=== PATIENT | male | born 1970 | race Caucasian/White ===

== ENCOUNTER 2019-12-24 22:29 | Emergency (ER) | payer SELFPAY ==
[2019-12-24 22:39] VITALS: BP 130/76; PULSE 75; RESP 14; TEMP 36.4; O2SAT 97; BMI 21.4
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
[2019-12-24] MEDS: sodium chloride 0.9% 1,000 ML 999 ML IV (23:21)
[2019-12-24] MEDS: LORazepam 2 mg/mL INJ 1 mL 1 MG IVP (23:21)
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
[2019-12-24 23:27] LABS: Basophils # 0.1 10^3/uL (0.0-0.1); Basophils % 0.7 %; Eosinophils # 0.5 10^3/uL (0.0-0.8); Eosinophils % 4.1 %; Hematocrit 44.2 % (42.0-52.0); Hemoglobin 14.4 g/dL (11.7-16.6); Lymphocytes % 33.1 %; Mean Corpuscular HGB Conc 32.6 g/dL (30.0-36.0); Mean Corpuscular Hemoglobin 31.8 pg (28.0-34.0); Mean Corpuscular Volume 97.6 fL (80-94); Monocytes # 1.1 10^3/uL (0.2-0.9); Monocytes % 8.7 %; Neutrophils # 6.4 10^3/uL (1.8-7.7); Neutrophils % 52.5 %; Nucleated Red Blood Cells % 0 %; Platelet Count 454 10^3/cmm (130-400); Red Blood Count 4.53 10^6/uL (4.1-5.3); Red Cell Distribution Width 13.2 % (12.1-15.1); White Blood Count 12.1 10^3/uL (4.0-10.0)
[2019-12-24 23:33] LABS: Alcohol Level 83 mg/dL (0-10); Anion Gap 16.1 (5-19); Blood Urea Nitrogen 13 mg/dL (6-20); Calcium 9.4 mg/dL (8.5-10.5); Carbon Dioxide 28 mmol/L (22-29); Chloride 102 mmol/L (98-107); Creatinine Clr Calc Pharmacy 69.4452; Glomerular Filtration Rate 64.9 mL/min (90-130); Glucose 82 mg/dL (65-115); Osmolality Calculated 289 mOsm/kg (285-295); Potassium 4.1 mmol/L (3.5-5.1); Sodium 142 mmol/L (136-145)
[2019-12-24] MEDS: iohexol 300 mg/mL 100 mL Btl IV (23:39)
[2019-12-25 01:30] VITALS: BP 139/88; PULSE 77; RESP 18; O2SAT 97
== END 2019-12-25 01:33 | disposition home or self-care (01) ==
PROVIDERS: Emergency Provider Emergency Medicine
DX: S20.211A Contusion of right front wall of thorax, initial encounter (principal); V29.9XXA Motorcycle rider (driver) (passenger) injured in unspecified traffic accident, initial encounter
CPT/HCPCS: 12345; 70450; 71260; 74177; 80048; 80307; 85025; 96361; 96374; 96375; 99282; 99283; J2060; J7030; Q9967

== ENCOUNTER 2020-08-31 11:04 | Emergency (ER) | payer SELFPAY ==
[2020-08-31 11:17] VITALS: BP 122/83; PULSE 79; RESP 14; TEMP 36.6; O2SAT 99; BMI 21.4
--- NOTE | 2020-08-31 11:31 | CT_ITS ---
WS: [id number] CT ABDOMEN AND PELVIS WITH CONTRAST HISTORY: left inguinal hernia TECHNIQUE: Imaging performed of the abdomen and pelvis with IV contrast. Single phase imaging of the abdomen. Coronal and sagittal reformats are submitted. All CT scans at [facility] use at least one of these dose optimization techniques: automated exposure control; mA and/or kV adjustment per patient size (includes targeted exams where dose is matched to clinical indication); or iterativ e reconstruction. IV CONTRAST: Omnipaque 300; 95 mL IV. Oral contrast: No DLP: 782.89 mGy.cm COMPARISON: 12/24/2019 Lower thorax: Lung bases are clear. Heart is normal size. No hiatal hernia. Liver/biliary system: Normal size with no intrahepatic dilatation. Gallbladder: Normal. No gallstones or wall thickening. No pericholecystic fluid. Pancreas: Normal. Spleen: Normal. Adrenal glands: Normal. Right kidney: Normal. Left kidney: Normal. Aorta: Mild atherosclerosis. Lymphadenopathy: None. Free fluid: None. GI tract: Prior appendectomy. No GI tract obstruction. There is no herniation of bowel loops of the a bdominal wall along the inguinal canals. Abdominal wall: Unremarkable abdominal wall. No hernia. Pelvis: No free fluid or adenopathy. Urinary bladder is minimally distended. Mildly enlarged prostate gland. Bones: Bilateral L5 pars defects with L5 anterolisthesis by [address]/CT abdomen pelvis w con* [id number] IMPRESSION: 1. No acute abdominal or pelvic abnormalities. 2. No inguinal hernias. 3. Grade 1 anterolisthesis of L5 and bilateral pars defects. 4. Prior appendectomy.
--- NOTE | 2020-08-31 11:52 | ED_ITS ---
HPI - Male Genitourinary General: Chief complaint: Urogenital-Male Stated complaint: groin issues Time Seen by Provider: 08/31/20 11:25 History of Present Illness: HPI Narrative: The patient is a 50-year-old male who complains of 2 days of left groin pain. He says he feels like he has a hernia as he was lifting a heavy load with another individual and felt a severe sharp pain while he was lifting MD Complaint: hernia Onset (ago): day(s) (2) Severity: moderate Quality: sharp Associated symptoms: Reports no associated symptoms Review of Systems General: Reports: 10 or more systems reviewed and unremarkable except in HPI and below Const: Denies: fatigue Eyes: Denies: change in vision, blurry vision or eye redness ENMT: Denies: throat pain, swelling of lips/tongue, ear or mastoid pain or nasal congestion Card: Denies: chest pain, palpitations, irregular heart rhythm, edema, dyspnea on exertion or orthopnea Resp: Denies: dyspnea, productive cough or non-productive cough GI: Reports: other (Left groin pain); Denies: abdominal pain, diarrhea or GI cramping : Denies: flank pain, urinary frequency or urinary urgency Musc: Denies: neck pain, back pain, extremity pain, joint pain, joint redness, limited range of motion or muscle weakness Skin/Breast: Denies: rash, pruritus, erythema, skin pain or skin tenderness Neuro: Denies: headache(s), numbness in extremities, weakness in extremities, sensory changes, difficulty walking, dizziness, confusion or Slurred speech present Psych: Denies: anxiety or depression Endo: Denies: polyuria All/Imm: Denies: urticaria, throat swelling or tongue swelling Physical Exam Const: COMMON NORMALS: no acute distress, average body habitus, patient oriented x3, no limitations, healthy appearing, alert and well nourished GENERAL APPEARANCE: cooperative, comfortable, well kempt and well developed ORIENTATION/CONSCIOUSNESS: Yes awake, Yes oriented to person, Yes oriented to place and Yes oriented to time HENMT: COMMON NORMALS: normocephalic, external ears normal and Normal external nose present HEAD & SCALP: normal to inspection and normocephalic NOSE: Normal external nose present EXTERNAL EAR: Yes external ears normal MOUTH: Normal oral and palatal mucosa present THROAT: posterior oropharynx normal Eye: COMMON NORMALS: Equal, round and reactive pupils present and EOMs intact bilaterally GENERAL EYE: appearance normal, both eyes and all related structures PUPIL: Yes Equal, round and reactive pupils present Neck/C-Spine: COMMON NORMALS: full ROM, no lymphadenopathy, no meningeal signs and no JVD GENERAL: Yes normal visual inspection Lymph: LYMPHATIC: no lymphadenopathy noted Chest: COMMONS NORMALS: normal inspection of the chest and normal palpation of entire chest wall Resp: COMMON NORMALS: normal respiratory effort, No retractions, No use of accessory muscles, clear to auscultation bilaterally and percussion normal EFFORT & INSPECTION: Yes able to speak in complete sentences AUSCULTATION: clear to auscultation bilaterally PERCUSSION: percussion normal Cardio: COMMON NORMALS: no JVD, regular rate, regular rhythm, S1 normal heart sound present, S2 normal heart sound present and Peripheral pulses 2+ throughout RATE: regular rate RHYTHM: regular rhythm HEART SOUNDS: S1 normal heart sound present and S2 normal heart sound present PERIPHERAL PULSES: Peripheral pulses 2+ throughout GI: COMMON NORMALS: Normal to inspection, nondistended, normoactive bowel sounds present, Soft to palpation, non-tender and no masses INSPECTION: Yes normal to inspection PALPATION: Yes Soft to palpation and Yes Hernia present indirect inguinal Indirect inguinal hernia laterality: left : COMMON NORMALS: Yes no CVA tenderness BLADDER/KIDNEY EXAM: Yes no CVA tenderness Back/Pelvis: COMMON NORMALS: no CVA tenderness, thoracic and lumbar spine normal to inspection, no thoracic nor lumbar tenderness and thoraco-lumbar ROM normal Extremity: COMMON NORMALS: normal to inspection, full ROM, capillary refill normal, no joint enlargement and no pedal edema GENERAL: Yes normal exam except as noted Neuro: COMMON NORMALS: patient oriented x3, CN's II-XII intact bilaterally, moves all extremities, no focal motor deficits, no sensory deficits noted and gait normal SENSORIUM/ORIENTATION: Yes alert, Yes oriented to person, Yes amadou ented to place and Yes oriented to time MENINGEAL SIGNS: Yes no meningeal signs Psych: COMMON NORMALS: mental status grossly normal, Normal thought process present, cooperative, normal affect and speech normal APPEARANCE: Yes well kempt ATTITUDE: Yes calm SPEECH: Yes normal speech THOUGHT PROCESS: Normal thought process present Skin: COMMON NORMALS: no rashes or lesions noted GENERAL SKIN EXAM: no rashes or lesions noted Course Vital Signs: Vital signs: Vital Signs Temperature 97.8 F 08/31/20 11:17 Pulse Rate 85 08/31/20 13:26 Respiratory Rate 19 H 08/31/20 13:26 Blood Pressure 145/86 08/31/20 13:26 Pulse Oximetry 99 08/31/20 13:26 MDM - Male MDM Narrative: Medical decision making narrative: I felt an inguinal hernia on exam that likely reduced after laying flat and pain control. CT shows no inguinal hernia. White count is mildly elevated and likely reactive from that. He feels his pain has improved since returning from CT. He refuses to give urine. Testicles not tender at all. Stable for discharge. Follow-up with general surgeon in a few days and primary care around them. Do not lift heavy things as it will herniate again. Return to the ER with worsening symptoms as you may need surgery. Lab Data: Labs: Lab Results 08/31/20 08/31/20 08/31/20 Range/Units 12:10 12:10 12:10 WBC 14.1 H (4.0-10.0) 10^3/ uL RBC 4.23 (4.1-5.3) 10^6/u L Hgb 13.4 (11.7-16.6) g/dL Hct 40.8 L (42.0-52.0) % MCV 96.5 H (80-94) fL MCH 31.7 (28.0-34.0) pg MCHC 32.8 (30.0-36.0) g/dL RDW 13.0 (12.1-15.1) % Plt Count 414 H (130-400) 10^3/c mm MPV 8.9 (7.4-10.4) fL Neut % (Auto) 77.9 % Lymph % (Auto) 13.3 % [place] % (Auto) 6.9 % Eos % (Auto) 1.0 % Baso % (Auto) 0.6 % Neut # (Auto) 11.01 H (1.8-7.7) 10^3/u L Lymph # (Auto) 1.9 (0.8-4.8) 10^3/u L [place] # (Auto) 1.0 H (0.2-0.9) 10^3/u L Eos # (Auto) 0.1 (0.0-0.8) 10^3/u L Baso # (Auto) 0.1 (0.0-0.1) 10^3/u L Nucleated RBC % (a uto) 0 % Nucleated RBCs # 0.0 /100WBC Sodium 127 L (136-145) mmol/L Potassium 3.7 (3.5-5.1) mmol/L Chloride 96 L (98-107) mmol/L Carbon Dioxide 23 (22-29) mmol/L Anion Gap 11.7 (5-19) BUN 7 (6-20) mg/dL Creatinine 0.8 (0.7-1.2) mg/dL GFR Calculation 103.2 (90-130) mL/min Glucose 110 (65-115) mg/dL Calculated Osmolal ity 263 L (285-295) mOsm/k g Lactate 0.8 (0.5-2.2) mmol/L Calcium 8.1 L (8.5-10.5) mg/dL Total Bilirubin 0.3 (0.15-1.2) mg/dL AST 13 (0-40) U/L ALT 9 (0-41) U/L Alkaline Phosphata se 49 (40-130) IU/L Total Protein 6.1 L (6.6-8.7) g/dL Albumin 3.5 (3.5-5.2) g/dL Globulin 2.6 (1.3-4.6) g/dL Discharge Plan Discharge Patient Disposition: Home Clinical Impression: Inguinal hernia Condition: Stable Prescriptions: No Action No Known Home Medications RF: 0 Discharge Orders: Discharge ED (Routine); Ordered 08/31/20 Ordered By: Anthony Rubio Discharge Diet: Advance as tolerated Discharge Activity: Resume usual activity Patient Instructions: Inguinal Hernia (ED), Opioid Safety Activity Restrictions/Additional Instructions: You likely have an inguinal hernia that reduced before the CAT scan. Please follow-up with general surgeon. I have placed a case management referral to help you get an appointment. Return to the ER with worsening symptoms otherwise follow-up with your primary care physician in a few days. Coding Level of Care Code ED Commissioning Engineer for Shahnaz Fwd Exam Comprehensive
[2020-08-31] MEDS: iohexol 300 mg/mL 100 mL Btl IV (12:03)
[2020-08-31 12:29] LABS: Basophils # 0.1 10^3/uL (0.0-0.1); Basophils % 0.6 %; Eosinophils # 0.1 10^3/uL (0.0-0.8); Hematocrit 40.8 % (42.0-52.0); Hemoglobin 13.4 g/dL (11.7-16.6); Lymphocytes # 1.9 10^3/uL (0.8-4.8); Lymphocytes % 13.3 %; Mean Corpuscular HGB Conc 32.8 g/dL (30.0-36.0); Mean Corpuscular Hemoglobin 31.7 pg (28.0-34.0); Mean Corpuscular Volume 96.5 fL (80-94); Mean Platelet Volume 8.9 fL (7.4-10.4); Monocytes % 6.9 %; Neutrophils # 11.01 10^3/uL (1.8-7.7); Neutrophils % 77.9 %; Nucleated Red Blood Cells % 0 %; Platelet Count 414 10^3/cmm (130-400); Red Blood Count 4.23 10^6/uL (4.1-5.3); White Blood Count 14.1 10^3/uL (4.0-10.0)
[2020-08-31 12:52] LABS: Alanine Aminotransferase 9 U/L (0-41); Albumin Level 3.5 g/dL (3.5-5.2); Alkaline Phosphatase 49 IU/L (40-130); Anion Gap 11.7 (5-19); Aspartate Amino Transferase 13 U/L (0-40); Blood Urea Nitrogen 7 mg/dL (6-20); Calcium 8.1 mg/dL (8.5-10.5); Carbon Dioxide 23 mmol/L (22-29); Chloride 96 mmol/L (98-107); Globulin 2.6 g/dL (1.3-4.6); Glomerular Filtration Rate 103.2 mL/min (90-130); Glucose 110 mg/dL (65-115); Lactate (Lactic Acid level) 0.8 mmol/L (0.5-2.2); Osmolality Calculated 263 mOsm/kg (285-295); Potassium 3.7 mmol/L (3.5-5.1); Sodium 127 mmol/L (136-145); Total Bilirubin 0.3 mg/dL (0.15-1.2); Total Protein 6.1 g/dL (6.6-8.7)
[2020-08-31 13:26] VITALS: BP 145/86; PULSE 85; RESP 19; O2SAT 99
[2020-08-31 13:49] VITALS: BP 126/89; PULSE 71; RESP 18; O2SAT 100
--- NOTE | 2020-09-01 11:54 | DCPLANNER ---
mailroom manager had message to schedule a follow up appointment for patient with general surgery. mailroom manager emailed patients information to both Camila and Purvi at [facility] General Surgery. Patients information will be printed and reviewed. Clinic will call patient with appointment information. mailroom manager also had message to speak with patient about getting established with a primary care physician. Patient stated that he would like to go to [facility], where he was seen before. mailroom manager called [facility], was told that case sealer was unable to schedule a follow up appointment for patient at this time. mailroom manager tried to call patient back at [phone], he did not answer the phone,unable to leave a voicemail for patient at this time. Patient is supposed to call case sealer back.
--- NOTE | 2020-09-02 07:38 | DCPLANNER ---
Patient has a follow up appointment scheduled for Monday, September 07, 2020 at 2:[address] Espinoza at [facility] General Surgery. Clinic will call patient with appointment information.
--- NOTE | 2020-09-10 15:55 | DCPLANNER ---
Patient had a follow up appointment scheduled for 09.07.20 with general surgery - patient did attend appointment.
== END 2020-08-31 13:46 | disposition home or self-care (01) ==
PROVIDERS: Emergency Provider Family Medicine
DX: K40.90 Unilateral inguinal hernia, without obstruction or gangrene, not specified as recurrent (principal)
CPT/HCPCS: 36415; 74177; 80053; 83605; 85025; 99283; Q9967

== ENCOUNTER 2020-11-30 09:09 | Emergency (ER) | payer SELFPAY ==
[2020-11-30 09:14] VITALS: BP 143/95; PULSE 66; RESP 18; TEMP 36.6; O2SAT 100; BMI 21.1
[2020-11-30 09:26] VITALS: BP 143/95; PULSE 64; RESP 16; O2SAT 99
--- NOTE | 2020-11-30 09:34 | XR_ITS ---
WS: [id number] PORTABLE CHEST HISTORY: dyspnea/cough COMPARISON: 09/14/2018 Lungs are clear and well expanded. No pleural effusion or pneumothorax. Cardiac size: Normal. Mediastinum/Aorta: Normal mediastinum. No osseous abnormality seen. XR/XR chest 1V portable [id number] IMPRESSION: Unremarkable portable chest.
--- NOTE | 2020-11-30 09:34 | ECG_ITS ---
[facility] Test Date: 2020-11-30 Pat Name: Alexandr Marley Department: Room: Gender: Male Facilities Maintenance Supervisor: : 1970 Requested By: Ja Meyer Order Number: [id number] Rick MD: Shelton Norman M.D. Measurements Intervals [place] Rate: 60 P: 62 UT: 142 QRS: 97 QRSD: 97 T: 72 QT: 372 QTc: 374 Interpretive Statements SINUS RHYTHM BORDERLINE RIGHT AXIS DEVIATION [QRS AXIS > 90] Compared to ECG 05/03/2017 08:38:36 Sinus arrhythmia no longer present Electronically Signed On 11-30-2020 12:31:18 CDT by Shelton Norman M.D. [id number]
--- NOTE | 2020-11-30 09:40 | PC.NURSE ---
XR done at bedside
[2020-11-30 09:42] LABS: Basophils # 0.1 10^3/uL (0.0-0.1); Basophils % 0.4 %; Eosinophils # 0.2 10^3/uL (0.0-0.8); Eosinophils % 1.6 %; Hematocrit 43.2 % (42.0-52.0); Hemoglobin 14.7 g/dL (11.7-16.6); Lymphocytes # 2.8 10^3/uL (0.8-4.8); Lymphocytes % 20.3 %; Mean Corpuscular Hemoglobin 32.5 pg (28.0-34.0); Mean Corpuscular Volume 95.6 fL (80-94); Mean Platelet Volume 9.2 fL (7.4-10.4); Monocytes # 1.4 10^3/uL (0.2-0.9); Monocytes % 9.8 %; Neutrophils # 9.23 10^3/uL (1.8-7.7); Neutrophils % 67.4 %; Nucleated Red Blood Cells % 0 %; Platelet Count 423 10^3/cmm (130-400); Red Blood Count 4.52 10^6/uL (4.1-5.3); Red Cell Distribution Width 13.4 % (12.1-15.1); White Blood Count 13.7 10^3/uL (4.0-10.0)
[2020-11-30 09:52] LABS: Blood Urea Nitrogen 10 mg/dL (6-20); Calcium 8.6 mg/dL (8.5-10.5); Carbon Dioxide 24 mmol/L (22-29); Chloride 103 mmol/L (98-107); Glomerular Filtration Rate 120.4 mL/min (90-130); Glucose 85 mg/dL (65-115); Osmolality Calculated 288 mOsm/kg (285-295); Sodium 140 mmol/L (136-145)
--- NOTE | 2020-11-30 10:05 | W.ED.URI ---
HPI - URI/Sore Throat General: Chief Complaint: Upper Respiratory Infection Stated Complaint: Cough/Congestion/CP Time Seen by Provider: 11/30/20 09:23 History of Present Illness: HPI Narrative: 50-year-old male comes complaint cough and congestion. His moderately productive sputum. He is a former smoker states he has emphysema but is not currently being treated with anything. He does not have a primary care doctor. MD elicited complaint: cough Pertinent past history: COPD Onset (ago): day(s) Consistency: constant Severity: moderate Description of mucous: yellow Able to tolerate fluids by mouth: Yes Exacerbating factors: exertion and deep breaths Relieving factors: rest Context: sick contacts Associated symptoms: Reports congestion, cough and nasal congestion; Deny abdominal pain, change in voice, chills, chest pain, diarrhea, epistaxis, ear or mastoid pain, fever(s), headache(s), myalgias, nausea, rash, rhinorrhea, short of breath, sinus pain, stiffness, sore throat or vomiting Treatments prior to arrival: none Review of Systems Const: Denies: fever(s) or chills ENMT: Reports: nasal congestion; Denies: ear or mastoid pain, epistaxis or sinus pain Card: Denies: chest pain Resp: Denies: dyspnea, productive cough or non-productive cough GI: Denies: abdominal pain, nausea, vomiting or diarrhea : Denies: flank pain, dysuria, urinary frequency or urinary urgency Skin/Breast: Denies: rash or pruritus Neuro: Denies: headache(s) PFSH ED PFSH: Family History Mother Cancer Social History Smoking and tobacco status: current every day smoker Quit status (tobacco): not considering quitting Second hand smoke exposure: No Alcohol intake: never Lives independently: Yes Physical Exam Const: COMMON NORMALS: no acute distress GENERAL APPEARANCE: cooperative and comfortable ORIENTATION/CONSCIOUSNESS: Yes awake, Yes oriented to person, Yes oriented to place and Yes oriented to time HENMT: COMMON NORMALS: normocephalic, atraumatic, hearing grossly normal bilaterally and external ears normal HEAD & SCALP: normocephalic and atraumatic EXTERNAL EAR: Yes external ears normal Neck/C-Spine: COMMON NORMALS: no JVD Resp: AUSCULTATION: rhonchi and wheezes Cardio: COMMON NORMALS: no JVD, regular rate, regular rhythm and No murmurs present (Cardio) RATE: regular rate RHYTHM: regular rhythm GI: COMMON NORMALS: Soft to palpation and No hepatosplenomegaly present AUSCULTATION: Yes normoactive bowel sounds PALPATION: Yes Soft to palpation, No Tenderness to palpation present (GI), No Guarding due to palpation present (GI) and Yes No hepatosplenomegaly present Extremity: COMMON NORMALS: normal to inspection, capillary refill normal, no clubbing, cyanosis or edema, no calf tenderness and no pedal edema Neuro: SENSORIUM/ORIENTATION: Yes oriented to person, Yes oriented to place and Yes oriented to time Skin: COMMON NORMALS: no rashes or lesions noted GENERAL SKIN EXAM: no rashes or lesions noted Course Vital Signs: Vital signs: Vital Signs Temperature 97.8 F 11/30/20 09:14 Pulse Rate 70 11/30/20 10:36 Respiratory Rate 20 H 11/30/20 10:36 Blood Pressure 120/79 11/30/20 10:36 Pulse Oximetry 98 11/30/20 10:36 MDM - URI/Sore Throat MDM Narrative: Medical decision making narrative: Start on bronchitis steroid taper albuterol as needed follow-up with primary care Lab Data: Labs: Lab Results 11/30/20 11/30/20 Range/Units 09:25 09:25 WBC 13.7 H (4.0-10.0) 10^3/ uL RBC 4.52 (4.1-5.3) 10^6/u L Hgb 14.7 (11.7-16.6) g/dL Hct 43.2 (42.0-52.0) % MCV 95.6 H (80-94) fL MCH 32.5 (28.0-34.0) pg MCHC 34.0 (30.0-36.0) g/dL RDW 13.4 (12.1-15.1) % Plt Count 423 H (130-400) 10^3/c mm MPV 9.2 (7.4-10.4) fL Neut % (Auto) 67.4 % Lymph % (Auto) 20.3 % [place] % (Auto) 9.8 % Eos % (Auto) 1.6 % Baso % (Auto) 0.4 % Neut # (Auto) 9.23 H (1.8-7.7) 10^3/u L Lymph # (Auto) 2.8 (0.8-4.8) 10^3/u L [place] # (Auto) 1.4 H (0.2-0.9) 10^3/u L Eos # (Auto) 0.2 (0.0-0.8) 10^3/u L Baso # (Auto) 0.1 (0.0-0.1) 10^3/u L Nucleated RBC % (a uto) 0 % Nucleated RBCs # 0.0 /100WBC Sodium 140 (136-145) mmol/L Potassium 3.7 (3.5-5.1) mmol/L Chloride 103 (98-107) mmol/L Carbon Dioxide 24 (22-29) mmol/L Anion Gap 16.7 (5-19) BUN 10 (6-20) mg/dL Creatinine 0.7 (0.7-1.2) mg/dL GFR Calculation 120.4 (90-130) mL/min Glucose 85 (65-115) mg/dL Calculated Osmolal ity 288 (285-295) mOsm/k g Calcium 8.6 (8.5-10.5) mg/dL Discharge Plan Discharge Patient Disposition: Home Clinical Impression: Acute exacerbation of chronic obstructive pulmonary disease (COPD) Condition: Stable Prescriptions: New doxycycline hyclate 100 mg capsule 100 mg PO BID 10 Days Qty: 20 RF: 0 Medrol (Levon) 4 mg tablets,dose pack See Rx Instructions .ROUTE .COMPLEX Qty: 21 RF: 0 albuterol sulfate 90 mcg/actuation HFA aerosol inhaler 2 inh INHALATION Q4H PRN (Reason: shortness of breath or wheezing) Qty: 18 RF: 0 Discharge Orders: Discharge ED (Routine); Ordered 11/30/20 Ordered By: Ja Munoz Discharge Diet: Usual diet Discharge Activity: Increase activity as tolerated Patient Instructions: Opioid Safety Coding Level of Care Code ED Automotive Fleet Supervisor for Khrisg Fwd Exam Comprehensive
[2020-11-30 10:07] VITALS: BP 131/73; PULSE 66; RESP 22; O2SAT 100
[2020-11-30] MEDS: ondansetron 2 mg/ML SDV 2 mL 4 MG IVP (10:26)
[2020-11-30 10:30] VITALS: BP 120/79; PULSE 70; RESP 20; O2SAT 98
[2020-11-30 10:33] LABS: Anion Gap 16.7 (5-19); Potassium 3.7 mmol/L (3.5-5.1)
--- NOTE | 2020-11-30 10:35 | PC.NURSE ---
Discharge instructions given to patient and , zofran IVP given, IV removed, no further questions. Patient ambulated to exit accompanied by this nurse and his .
[2020-11-30 10:36] VITALS: BP 120/79; PULSE 70; RESP 20; O2SAT 98
--- NOTE | 2020-12-03 14:03 | DCPLANNER ---
manager of planning had message to speak with patient about getting established with a primary care physician. manager of planning called [phone], unable to speak with patient at this time, a voicemail was left for patient to return case resource manager phone call.
== END 2020-11-30 10:30 | disposition home or self-care (01) ==
PROVIDERS: Emergency Provider Family Medicine
DX: J44.1 Chronic obstructive pulmonary disease with (acute) exacerbation (principal); F17.210 Nicotine dependence, cigarettes, uncomplicated
CPT/HCPCS: 71045; 80048; 85025; 93005; 96374; 99284; J2405

== ENCOUNTER 2021-06-24 07:40 | Emergency (ER) | payer SELFPAY ==
--- NOTE | 2021-06-24 07:47 | W.ED.GENADLT ---
HPI - General Adult General: Chief complaint: Extremity Injury, Upper Stated complaint: L NECK & HEAD PAIN FROM INJURY Time Seen by Provider: 06/24/21 07:46 History of Present Illness: HPI narrative: 50-year-old male presents emergency room with complaint of neck pain which he describes as left side pain.States that 4 days ago while he was at work some utensils pots or pans or some such fell off of a shelf and hit him on the left shoulder and left side of the neck. He states he has bruising across his entire left side. He states that all of this affects him on the left because of his COPD. Patient has sporadic movements. He is also mildly tachycardic. Denies any loss of consciousness complaining of neck pain as well as bruising. Onset (ago): day(s) (4) Location: head, neck, chest, left and upper extremity Severity: mild Quality: aching Pain Consistency: constant Relieving factors: none Exacerbating factors: none Associated symptoms: Reports headache(s); Deny chest pain, cough, diaphoresis, decreased appetite, dyspnea, fevers/chills, malaise, nausea, rash, palpitations, seizures, short of breath, syncope, vomiting or weakness Treatments prior to arrival: none Review of Systems Const: Denies: malaise or diaphoresis ENMT: Denies: throat pain, ear or mastoid pain, nasal discharge or nasal congestion Card: Denies: chest pain, palpitations or syncope Resp: Denies: dyspnea GI: Denies: nausea or vomiting : Denies: flank pain, dysuria, urinary frequency or urinary urgency Skin/Breast: Denies: rash Neuro: Reports: headache(s) [facility] ED PFSH: Medical History (Updated 06/24/21 @ 08:10 by Ja Munoz DO) COPD (chronic obstructive pulmonary disease) Surgical History (Updated 06/24/21 @ 08:05 by Ja Munoz DO) History of appendectomy Family History Mother Cancer Social History Smoking and tobacco status: current every day smoker Quit status (tobacco): not considering quitting Second hand smoke exposure: No Alcohol intake: never Lives independently: Yes Physical Exam Const: GENERAL APPEARANCE: cooperative and comfortable ORIENTATION/CONSCIOUSNESS: Yes awake, Yes oriented to person, Yes oriented to place and Yes oriented to time HENMT: COMMON NORMALS: normocephalic, atraumatic and hearing grossly normal bilaterally HEAD & SCALP: normocephalic and atraumatic Neck/C-Spine: OTHER: Attempt to clear C-spine at the bedside patient reports pain imaging ordered. Resp: COMMON NORMALS: normal respiratory effort, No retractions, No use of accessory muscles and clear to auscultation bilaterally AUSCULTATION: clear to auscultation bilaterally Cardio: COMMON NORMALS: regular rate, regular rhythm and No murmurs present (Cardio) RATE: regular rate RHYTHM: regular rhythm GI: COMMON NORMALS: Soft to palpation and No hepatosplenomegaly present AUSCULTATION: Yes normoactive bowel sounds PALPATION: Yes Soft to palpation, No Tenderness to palpation present (GI), No Guarding due to palpation present (GI) and Yes No hepatosplenomegaly present Extremity: COMMON NORMALS: normal to inspection, capillary refill normal, no clubbing, cyanosis or edema, no calf tenderness and no pedal edema Neuro: SENSORIUM/ORIENTATION: Yes oriented to person, Yes oriented to place and Yes oriented to time OTHER: Cranial nerves II to XII grossly intact. No focal neurologic deficits noted. No pronator drift. Deep tendon reflex and upper extremity on the left are normal at brachial radialis biceps and triceps. Sensation normal. Java Mobile Developer strength equal. Skin: COMMON NORMALS: no rashes or lesions noted GENERAL SKIN EXAM: no rashes or lesions noted Course Vital Signs: Vital signs: Vital Signs Pulse Rate 101 H 06/24/21 07:53 Respiratory Rate 18 06/24/21 07:53 Blood Pressure 136/89 06/24/21 07:53 Pulse Oximetry 98 06/24/21 07:53 MDM - General Adult MDM Narrative: Medical decision making narrative: On exam patient appears to be under under the influence. Suspect he is under the influence of methamphetamine he is mildly tachycardic has rather chaotic leg movements he actually destroyed 2 masks just grabbing at his face and then did not seem to even notice a one-point of the mask was covering his eyes with the upper band of the mask after he ripped the lower band off. His exam is unremarkable C-spine films done no acute changes does have chronic changes and some disc disease. Radiology report reviewed. Discharge Plan Discharge Patient Disposition: Home Clinical Impression: Acute neck pain Condition: Stable Prescriptions: New diclofenac sodium 75 mg tablet,delayed release (DR/EC) 75 mg PO Q12H PRN (Reason: pain) Qty: 20 RF: 0 No Action Medrol (Levon) 4 mg tablets,dose pack See Rx Instructions .ROUTE .COMPLEX Qty: 21 RF: 0 albuterol sulfate 90 mcg/actuation HFA aerosol inhaler 2 inh INHALATION Q4H PRN (Reason: shortness of breath or wheezing) Qty: 18 RF: 0 Discharge Orders: Discharge ED (Routine); Ordered 06/24/21 Ordered By: Ja Munoz Patient Instructions: Opioid Safety Coding Level of Care Code ED Asbestos Siding Installer for Chg Fwd Exam Detailed
[2021-06-24 07:53] VITALS: BP 136/89; PULSE 101; RESP 18; O2SAT 98; BMI 21.4
--- NOTE | 2021-06-24 08:04 | XR_ITS ---
WS: [id number] Cervical spine, 5 views, 06/24/2021 Clinical Data: Pain Comparison: Cervical spine, 09/18/2014. Findings: No compression fractures are seen. There are degenerative disks at C4-C5, C5-C6 and C6-C7 w ith osteophyte formation. There is loss of normal lordotic curvature. There is no prevertebral soft t issue swelling. The odontoid is unremarkable. The soft tissues of the neck and the lung apices are no rmal. XR/XR cervical spine 3V* [id number] Impression: 1. Degenerative disc narrowing at C4-C5, C5-C6 and C6-7 with osteophyte formati on. 2. Loss of normal lordotic curvature.
[2021-06-24] MEDS: ketorolac 30 mg/mL INJ 60 MG IM (08:47)
[2021-06-24 08:53] VITALS: BP 136/89; PULSE 101; RESP 18; O2SAT 98
== END 2021-06-24 08:54 | disposition home or self-care (01) ==
PROVIDERS: Emergency Provider Family Medicine
DX: M54.2 Cervicalgia (principal); J44.9 Chronic obstructive pulmonary disease, unspecified; F17.210 Nicotine dependence, cigarettes, uncomplicated
CPT/HCPCS: 72040; 96372; 99283; J1885

== ENCOUNTER 2021-07-14 09:49 | Emergency (ER) | payer SELFPAY ==
[2021-07-14 09:59] VITALS: BP 130/74; PULSE 73; RESP 22; TEMP 36.7; O2SAT 97; BMI 21.4
--- NOTE | 2021-07-14 10:13 | W.ED.COVID ---
HPI - COVID General: Chief Complaint: Headache Stated Complaint: Body Aches, COVID exposure Time Seen by Provider: 07/14/21 10:09 Triage information: No fever, cough or shortness of breath. No known COVID + exposure last 14 days History of Present Illness: HPI Narrative: Patient states he thinks he has COVID. Had close exposure positive COVID he said in the last 3 weeks. Said he has a headache he has body aches, also nauseated, increased shortness of breath. He is also coughing. Said taste and smell is not as good as it was. Also requesting note for work MD complaint: reported COVID exposure and has COVID symptoms COVID 19 common symptoms: positive non-productive cough, dyspnea, body aches, headache(s), loss of sense of smell and/or taste, nasal congestion and diarrhea COVID 19 other sytmptoms: negative chest pain Onset (ago): day(s) (To) Severity: mild Pertinent comorbid conditions: COPD/respiratory disease Treatment prior to arrival: none COVID Results: No Data to Display Review of Systems Const: Reports: body aches Eyes: Denies: change in vision or blurry vision ENMT: Reports: nasal congestion Card: Denies: chest pain or dyspnea on exertion Resp: Reports: dyspnea and non-productive cough GI: Reports: diarrhea : Denies: difficulty urinating Musc: Denies: extremity pain Skin/Breast: Denies: rash Neuro: Reports: headache(s) Psych: Denies: anxiety or depression Parker/Lymph: Denies: easy bruising PFS ED PFSH: Medical History (Updated 07/14/21 @ 10:12 by MISTY Milton) COPD (chronic obstructive pulmonary disease) Surgical History (Updated 06/24/21 @ 08:05 by Ja Munoz DO) History of appendectomy Family History Mother Cancer Social History Smoking and tobacco status: current every day smoker Quit status (tobacco): not considering quitting Second hand smoke exposure: No Alcohol intake: never Lives independently: Yes Physical Exam Narrative: EXAM NARRATIVE: Patient does not appear in any acute distress. Patient does not appear short of breath. Const: COMMON NORMALS: no acute distress, average body habitus and patient oriented x3 HENMT: COMMON NORMALS: normocephalic HEAD & SCALP: normal to inspection and normocephalic FACE & SINUS: normal facial exam Eye: COMMON NORMALS: conjunctivae normal GENERAL EYE: appearance normal, both eyes and all related structures CONJUNCTIVA: Yes conjunctivae normal Neck/C-Spine: COMMON NORMALS: no JVD Chest: COMMONS NORMALS: normal inspection of the chest Resp: COMMON NORMALS: normal respiratory effort and No use of accessory muscles EFFORT & INSPECTION: Yes able to speak in complete sentences Cardio: COMMON NORMALS: no JVD and regular rate RATE: regular rate GI: INSPECTION: Yes normal to inspection Extremity: COMMON NORMALS: normal to inspection and full ROM Neuro: COMMON NORMALS: patient oriented x3 Course Vital Signs: Vital signs: Vital Signs Temperature 98.1 F 07/14/21 09:59 Pulse Rate 73 07/14/21 09:59 Respiratory Rate 22 H 07/14/21 09:59 Blood Pressure 130/74 07/14/21 09:59 Pulse Oximetry 97 07/14/21 09:59 MDM - COVID MDM Narrative: Medical decision making narrative: Brief history and physical exam was performed as part of the triage process. Due to current ED wait time patient will be placed in waiting room until a room becomes available. Explained to patient he/she will be seen in order of severity. Patient is currently safe to wait in the waiting room until we can get them placed. Patient informed that if condition worsens at any time to please let the dental front office assistant know. Mr. Duke is here because he thinks he might have COVID. Patient is in no acute distress. Patient is requesting a note for work. Says he just feels achy and then feel like he can work for next few days. Patient has had positive COVID exposure in the last 3 weeks. Patient has shortness of breath consistent with his emphysema but he says is no different than previous. His out of an inhaler. Vital signs are stable. Encouraged patient to call clinic for possible MCA infusion once results are back and they are positive but it is hard to determine when his symptoms actually started. Patient left before discharge requesting multiple times for work note. Handwritten work note given for patient patient left lymphedema COVID Results: No Data to Display Discharge Plan Discharge Patient Disposition: Home Clinical Impression: Close exposure to COVID-19 virus Condition: Stable Prescriptions: New Decadron 6 mg tablet 6 mg PO DAILY Qty: 7 RF: 0 ProAir HFA 90 mcg/actuation HFA aerosol inhaler 2 inh inhalation Q4H PRN (Reason: shortness of breath or wheezing) Qty: 6.7 RF: 0 No Action Medrol (Levon) 4 mg tablets,dose pack See Rx Instructions .ROUTE .COMPLEX Qty: 21 RF: 0 albuterol sulfate 90 mcg/actuation HFA aerosol inhaler 2 inh INHALATION Q4H PRN (Reason: shortness of breath or wheezing) Qty: 18 RF: 0 diclofenac sodium 75 mg tablet,delayed release (DR/EC) 75 mg PO Q12H PRN (Reason: pain) Qty: 20 RF: 0 Discharge Orders: Discharge ED (Routine); Ordered 07/14/21 Ordered By: Enoc Olivas Discharge Diet: Usual diet Discharge Activity: Increase activity as tolerated Patient Instructions: COVID-19 (Coronavirus Disease 2019) (ED) Activity Restrictions/Additional Instructions: Follow-up with medical provider as directed. Take medications as prescribed. Return to the ER or your medical provider if condition worsens. Please read and understand discharge instructions. If any questions ask please. Stand Alone Forms: Work/School Release Coding Level of Care Code ED Human Development Professor for Shahnaz Fwd Exam Comprehensive
== END 2021-07-14 14:10 | disposition home or self-care (01) ==
PROVIDERS: Emergency Provider Nurse Practitioner Family
DX: R51.9 Headache, unspecified (principal); Z20.822 Contact with and (suspected) exposure to COVID-19; J43.9 Emphysema, unspecified; F17.200 Nicotine dependence, unspecified, uncomplicated
CPT/HCPCS: 99281

== ENCOUNTER → 2021-07-19 11:07 | Outpatient (BNVA) | payer OTHER, SELFPAY | PROVIDERS: Visit Provider Nurse Practitioner Family | DX: Z20.822 Contact with and (suspected) exposure to COVID-19 (principal) | CPT/HCPCS: 87635 ==

== ENCOUNTER 2021-08-20 10:05 | Emergency (ER) | payer SELFPAY ==
[2021-08-20 10:14] VITALS: BP 125/75; PULSE 84; RESP 22; TEMP 36.6; O2SAT 96; BMI 21.1
--- NOTE | 2021-08-20 10:41 | XR_ITS ---
WS: [id number] Exam: XR chest 1V portable [id number] Date/Time of Exam: 08/20/2021 10:48 AM Reason For Exam: dyspnea/cough Comparison 11/30/2020. The lungs are fully expanded and clear. No pleural effusions. Normal cardiomediastinal silhouette. Se veral emphysematous blebs seen in the apex the right lung. Regional bony elements are intact. XR/XR chest 1V portable [id number] IMPRESSION: 1. No acute cardiopulmonary finding. No change.
--- NOTE | 2021-08-20 10:41 | ECG_ITS ---
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 Measurements Intervals Dozier Rate: 61 P: 66 UT: 151 QRS: 91 QRSD: 106 T: 75 QT: 376 QTc: 380 Interpretive Statements SINUS RHYTHM INDETERMINATE AXIS INCOMPLETE RIGHT BUNDLE BRANCH BLOCK [90+ ms QRS DURATION, TERMINAL R IN V1/V2, 40+ ms S IN I/aVL/V4/V5/V6] Compared to ECG 11/30/2020 09:28:34 Indeterminate axis now present Incomplete right bundle-branch block now present Electronically Signed On 08-20-2021 12:27:51 SONOSCOPE OPERATOR by Osito De Oliveira M.D. [id number]
[2021-08-20 10:47] VITALS: BP 126/90; PULSE 62; RESP 16; O2SAT 100
[2021-08-20 10:48] VITALS: O2SAT 100
[2021-08-20] MEDS: sodium chloride 0.9% 1,000 ML 999 ML IV (11:03)
[2021-08-20 11:05] VITALS: BP 127/76; PULSE 68; O2SAT 100
[2021-08-20 11:08] LABS: Basophils # 0.1 10^3/uL (0.0-0.1); Eosinophils # 0.4 10^3/uL (0.0-0.8); Eosinophils % 5.6 %; Hemoglobin 15.8 g/dL (11.7-16.6); Lymphocytes # 1.8 10^3/uL (0.8-4.8); Lymphocytes % 25.8 %; Mean Corpuscular HGB Conc 32.2 g/dL (30.0-36.0); Mean Corpuscular Hemoglobin 31.5 pg (28.0-34.0); Mean Corpuscular Volume 97.8 fl (80-94); Mean Platelet Volume 9.7 fL (7.4-10.4); Monocytes # 0.6 10^3/uL (0.2-0.9); Monocytes % 8.9 %; Neutrophils # 4.06 10^3/uL (1.8-7.7); Neutrophils % 58.6 %; Nucleated Red Blood Cells % 0 %; Platelet Count 382 10^3/cmm (130-400); Red Blood Count 5.01 10^6/uL (4.1-5.3); Red Cell Distribution Width 13.7 % (12.1-15.1); White Blood Count 6.9 10^3/uL (4.0-10.0)
[2021-08-20 11:34] VITALS: BP 127/76; PULSE 55; RESP 16; O2SAT 98
[2021-08-20 11:59] LABS: Alanine Aminotransferase 11 U/L (0-41); Albumin Level 4.1 g/dL (3.5-5.2); Alkaline Phosphatase 42 IU/L (40-130); Anion Gap 9.9 (5-19); Aspartate Amino Transferase 12 U/L (0-40); Blood Urea Nitrogen 9 mg/dL (6-20); Calcium 9.1 mg/dL (8.5-10.5); Carbon Dioxide 27 mmol/L (22-29); Chloride 106 mmol/L (98-107); Globulin 2.8 g/dL (1.3-4.6); Glomerular Filtration Rate 102.7 mL/min (90-130); Glucose 104 mg/dL (65-115); Osmolality Calculated 287 mOsm/kg (285-295); Potassium 3.9 mmol/L (3.5-5.1); Sodium 139 mmol/L (136-145); Total Bilirubin 0.4 mg/dL (0.15-1.2); Total Protein 6.9 g/dL (6.6-8.7)
--- NOTE | 2021-08-20 12:01 | W.ED.COVID ---
HPI - COVID General: Chief Complaint: COVID symptoms Stated Complaint: Cant breath, has infazima , hurting bad Time Seen by Provider: 08/20/21 10:25 Triage information: Has fever, cough or shortness of breath. Exposure to COVID + person last 14 days History of Present Illness: 51-year-old male who presents to the emergency room with complaint of cough and congestion shortness of breath. He does not have any chest pain he has a lot of sinus congestion. He tested positive for Covid on July 20 most of symptoms is resolved but he still has a persistent cough some myalgias and fatigue. MD complaint: known COVID positive Prior testing date: 07/20/21 COVID 19 common symptoms: positive cough, non-productive cough, dyspnea and body aches; negative nasal congestion, nausea, vomiting or diarrhea COVID 19 other sytmptoms: negative chest pain or requiring oxygen Onset (ago): week(s) Severity: mild Treatment prior to arrival: none COVID Results: SARS-CoV-2 RNA (RT-PCR) Detected (NOT DETECTED) A 07/19/21 11:07 07/19/21 Review of Systems Const: Reports: body aches ENMT: Denies: nasal congestion Card: Denies: chest pain Resp: Reports: dyspnea and non-productive cough GI: Denies: nausea, vomiting or diarrhea : Denies: flank pain, dysuria, urinary frequency or urinary urgency Skin/Breast: Denies: rash or pruritus [facility] ED PFSH: Medical History COPD (chronic obstructive pulmonary disease) Surgical History History of appendectomy Family History Mother Cancer Social History Smoking and tobacco status: current every day smoker Quit status (tobacco): not considering quitting Second hand smoke exposure: No Alcohol intake: never Lives independently: Yes Physical Exam Const: GENERAL APPEARANCE: cooperative and comfortable ORIENTATION/CONSCIOUSNESS: Yes awake, Yes oriented to person, Yes oriented to place and Yes oriented to time HENMT: COMMON NORMALS: normocephalic, atraumatic and hearing grossly normal bilaterally HEAD & SCALP: normocephalic and atraumatic Neck/C-Spine: COMMON NORMALS: no JVD Resp: AUSCULTATION: rhonchi and wheezes Cardio: COMMON NORMALS: no JVD, regular rate, regular rhythm and No murmurs present (Cardio) RATE: regular rate RHYTHM: regular rhythm GI: COMMON NORMALS: Soft to palpation and No hepatosplenomegaly present AUSCULTATION: Yes normoactive bowel sounds PALPATION: Yes Soft to palpation, No Tenderness to palpation present (GI), No Guarding due to palpation present (GI) and Yes No hepatosplenomegaly present Extremity: COMMON NORMALS: normal to inspection, capillary refill normal, no clubbing, cyanosis or edema, no calf tenderness and no pedal edema Neuro: SENSORIUM/ORIENTATION: Yes oriented to person, Yes oriented to place and Yes oriented to time Skin: COMMON NORMALS: no rashes or lesions noted GENERAL SKIN EXAM: no rashes or lesions noted Course Vital Signs: Vital signs: Vital Signs Temperature 97.8 F 08/20/21 10:14 Pulse Rate 64 08/20/21 12:44 Respiratory Rate 16 08/20/21 11:34 Blood Pressure 139/91 08/20/21 12:44 Pulse Oximetry 100 08/20/21 12:44 MDM - COVID Medical Decision Making COVID was positive nearly a month ago he is not having any chest pain. He is not tachycardic his sats are good. Reviewed labs and findings with him we will go ahead and discharge home on steroids doxycycline albuterol as needed Medical Records I reviewed the patient's medical records. Lab Data I reviewed the patient's lab results. : 08/20/21 10:58 08/20/21 11:33 Radiology Impressions Chest X-Ray 08/20/21 10:41 IMPRESSION: 1. No acute cardiopulmonary finding. No change. Laboratory Results WBC 6.9 10^3/uL (4.0-10.0) 08/20/21 10:58 RBC 5.01 10^6/uL (4.1-5.3) 08/20/21 10:58 Hgb 15.8 g/dL (11.7-16.6) 08/20/21 10:58 Hct 49.0 % (42.0-52.0) 08/20/21 10:58 MCV 97.8 fl (80-94) H 08/20/21 10:58 MCH 31.5 pg (28.0-34.0) 08/20/21 10:58 MCHC 32.2 g/dL (30.0-36.0) 08/20/21 10:58 RDW 13.7 % (12.1-15.1) 08/20/21 10:58 Plt Count 382 10^3/cmm (130-400) 08/20/21 10:58 MPV 9.7 fL (7.4-10.4) 08/20/21 10:58 Neut % (Auto) 58.6 % 08/20/21 10:58 Lymph % (Auto) 25.8 % 08/20/21 10:58 [place] % (Auto) 8.9 % 08/20/21 10:58 Eos % (Auto) 5.6 % 08/20/21 10:58 Baso % (Auto) 1.0 % 08/20/21 10:58 Neut # (Auto) 4.06 10^3/uL (1.8-7.7) 08/20/21 10:58 Lymph # (Auto) 1.8 10^3/uL (0.8-4.8) 08/20/21 10:58 [place] # (Auto) 0.6 10^3/uL (0.2-0.9) 08/20/21 10:58 Eos # (Auto) 0.4 10^3/uL (0.0-0.8) 08/20/21 10:58 Baso # (Auto) 0.1 10^3/uL (0.0-0.1) 08/20/21 10:58 Nucleated RBC % (auto) 0 % 08/20/21 10:58 Nucleated RBCs # 0.0 /100WBC 08/20/21 10:58 Sodium 139 mmol/L (136-145) 08/20/21 11:33 Potassium 3.9 mmol/L (3.5-5.1) 08/20/21 11:33 Chloride 106 mmol/L (98-107) 08/20/21 11:33 Carbon Dioxide 27 mmol/L (22-29) 08/20/21 11:33 Anion Gap 9.9 (5-19) 08/20/21 11:33 BUN 9 mg/dL (6-20) 08/20/21 11:33 Creatinine 0.8 mg/dL (0.7-1.2) 08/20/21 11:33 GFR Calculation 102.7 mL/min (90-130) 08/20/21 11:33 Glucose 104 mg/dL (65-115) 08/20/21 11:33 Calculated Osmolality 287 mOsm/kg (285-295) 08/20/21 11:33 Calcium 9.1 mg/dL (8.5-10.5) 08/20/21 11:33 Total Bilirubin 0.4 mg/dL (0.15-1.2) 08/20/21 11:33 AST 12 U/L (0-40) 08/20/21 11:33 ALT 11 U/L (0-41) 08/20/21 11:33 Alkaline Phosphatase 42 IU/L (40-130) 08/20/21 11:33 Total Protein 6.9 g/dL (6.6-8.7) 08/20/21 11:33 Albumin 4.1 g/dL (3.5-5.2) 08/20/21 11:33 Globulin 2.8 g/dL (1.3-4.6) 08/20/21 11:33 SARS-CoV-2 RNA (RT-PCR) Detected (NOT DETECTED) A 07/19/21 11:07 07/19/21 Discharge Plan Discharge Patient Disposition: Home Clinical Impression: Acute exacerbation of chronic obstructive pulmonary disease Condition: Stable Prescriptions: New doxycycline hyclate 100 mg capsule 100 mg PO BID 10 Days Qty: 20 0RF Medrol (Levon) 4 mg tablets,dose pack See Rx Instructions .ROUTE .COMPLEX Qty: 21 0RF Rx Instructions: orally per package directions albuterol sulfate 90 mcg/actuation HFA aerosol inhaler 2 inh INHALATION Q4H PRN (Reason: shortness of breath or wheezing) Qty: 18 0RF No Action albuterol sulfate 90 mcg/actuation HFA aerosol inhaler 2 inh INHALATION Q4H PRN (Reason: shortness of breath or wheezing) Qty: 18 0RF albuterol sulfate [ProAir HFA] 90 mcg/actuation HFA aerosol inhaler 2 inh inhalation Q4H PRN (Reason: shortness of breath or wheezing) Qty: 6.7 0RF Discharge Orders: Discharge ED (Routine); Ordered 08/20/21 Ordered By: Ja Munoz Patient Instructions: Opioid Safety Coding Level of Care Code ED Automobile Or Truck Rental Dispatcher for Chg Fwd Exam Comprehensive
[2021-08-20 12:44] VITALS: BP 139/91; PULSE 64; O2SAT 100
== END 2021-08-20 12:46 | disposition home or self-care (01) ==
PROVIDERS: Emergency Provider Family Medicine
DX: J44.1 Chronic obstructive pulmonary disease with (acute) exacerbation (principal); F17.210 Nicotine dependence, cigarettes, uncomplicated
CPT/HCPCS: 71045; 80053; 85025; 93005; 99283; J7030

== ENCOUNTER 2021-09-28 10:07 | Emergency (ER) | payer SELFPAY ==
[2021-09-28 10:13] VITALS: BP 103/72; PULSE 78; RESP 20; TEMP 36.6; O2SAT 100; BMI 21.1
[2021-09-28 10:23] VITALS: BP 122/88; PULSE 83; RESP 16; O2SAT 99
--- NOTE | 2021-09-28 10:26 | ED_ITS ---
HPI - Extremity Problem General: Chief complaint: Extremity Injury, Upper Stated complaint: Diff breathing, congestion, cough Time Seen by Provider: 09/28/21 10:13 Source: patient Mode of arrival: ambulatory History of Present Illness: 51-year-old male presents emergency room complaining of neck pain. He Workmen's Comp. injury back in May around [place] he was seen several days after that with left-sided neck pain he st ates this is still precipitating from that in addition to that he has some shortness of breath. He denies any fever sweats chills no chest pain. Chronic baseline cough with no increase in sputum MD Complaint: other (Neck pain) Onset (ago): week(s) Pain Consistency: constant Location: left (Neck and shoulder persistent since May) Quality: aching Radiation: none Relieving factors: nothing Exacerbating factors: nothing Associated symptoms: Reports arthralgias and short of breath; Deny chest pain, fever(s), myalgias or rash Review of Systems Const: Denies: fever(s) ENMT: Denies: throat pain, ear or mastoid pain, nasal discharge or nasal congestion Card: Denies: chest pain Resp: Denies: dyspnea, productive cough or non-productive cough GI: Denies: abdominal pain, nausea, vomiting, hematemesis, coffee ground emesis, diarrhea, constipation, bloating, hematochezia or melena : Denies: flank pain, dysuria, urinary frequency or urinary urgency Skin/Breast: Denies: rash PFSH ED PFSH: Medical History COPD (chronic obstructive pulmonary disease) Surgical History History of appendectomy Family History Mother Cancer Social History Smoking and tobacco status: current every day smoker Quit status (tobacco): not considering quitting Second hand smoke exposure: No Alcohol intake: never Lives independently: Yes Physical Exam Const: COMMON NORMALS: no acute distress GENERAL APPEARANCE: cooperative and comfortable ORIENTATION/CONSCIOUSNESS: Yes awake, Yes oriented to person, Yes oriented to place and Yes oriented to time HENMT: COMMON NORMALS: normocephalic, atraumatic and hearing grossly normal bilaterally HEAD & SCALP: normocephalic and atraumatic Neck/C-Spine: COMMON NORMALS: full ROM, no lymphadenopathy, supple and no JVD Resp: COMMON NORMALS: normal respiratory effort, No retractions, No use of accessory muscles and clear to auscultation bilaterally AUSCULTATION: clear to auscultation bilaterally Cardio: COMMON NORMALS: no JVD, regular rate, regular rhythm and No murmurs present (Cardio) RATE: regular rate RHYTHM: regular rhythm GI: COMMON NORMALS: Soft to palpation and No hepatosplenomegaly present AUSCULTATION: Yes normoactive bowel sounds PALPATION: Yes Soft to palpation, No Tenderness to palpation present (GI), No Guarding due to palpation present (GI) and Yes No hepatosplenomegaly present Extremity: COMMON NORMALS: normal to inspection, capillary refill normal, no clubbing, cyanosis or edema, no calf tenderness and no pedal edema Neuro: SENSORIUM/ORIENTATION: Yes oriented to person, Yes oriented to place and Yes oriented to time Skin: COMMON NORMALS: no rashes or lesions noted GENERAL SKIN EXAM: no rashes or lesions noted Course Vital Signs: Vital signs: Vital Signs Temperature 97.9 F 09/28/21 10:13 Pulse Rate 83 09/28/21 10:23 Respiratory Rate 16 09/28/21 10:23 Blood Pressure 122/88 09/28/21 10:23 Pulse Oximetry 99 09/28/21 10:23 MDM - Extremity (Nontraumatic) Medical Decision Making Chest x-ray and exam are unremarkable. These are chronic issues patient is dealing with malcom establish with a PCP can use diclofenac as needed for his neck use albuterol as needed. Discussed with patient in case management will try to get him established with a PCP Medical Records I reviewed the patient's medical records. Lab Data I reviewed the patient's lab results. Radiology Impressions Chest X-Ray 09/28/21 10:30 IMPRESSION: No acute chest abnormality. Discharge Plan Discharge Patient Disposition: Home Clinical Impression: COPD (chronic obstructive pulmonary disease), Chronic neck pain Condition: Stable Prescriptions: New diclofenac sodium 75 mg tablet,delayed release (DR/EC) 75 mg PO Q12H PRN (Reason: pain) Qty: 20 0RF albuterol sulfate 90 mcg/actuation HFA aerosol inhaler 2 inh INHALATION Q4H PRN (Reason: shortness of breath or wheezing) Qty: 18 0RF No Action albuterol sulfate 90 mcg/actuation HFA aerosol inhaler 2 inh INHALATION Q4H PRN (Reason: shortness of breath or wheezing) Qty: 18 0RF albuterol sulfate [ProAir HFA] 90 mcg/actuation HFA aerosol inhaler 2 inh inhalation Q4H PRN (Reason: shortness of breath or wheezing) Qty: 6.7 0RF Medrol (Levon) 4 mg tablets,dose pack See Rx Instructions .ROUTE .COMPLEX Qty: 21 0RF Rx Instructions: orally per package directions albuterol sulfate 90 mcg/actuation HFA aerosol inhaler 2 inh INHALATION Q4H PRN (Reason: shortness of breath or wheezing) Qty: 18 0RF Discharge Orders: Discharge ED (Routine); Ordered 09/28/21 Ordered By: Ja Munoz Discharge Diet: Usual diet Discharge Activity: Increase activity as tolerated Patient Instructions: Opioid Safety Activity Restrictions/Additional Instructions: Case management will help you establish with a PCP. Coding Level of Care Code ED Driller Portable for Shahnaz Fwd Exam Comprehensive
--- NOTE | 2021-09-28 10:30 | XR_ITS ---
WS: [id number] XR chest 1V portable [id number] REASON FOR EXAM: dyspnea/cough FINDINGS: The chest is unchanged compared to 08/20/2021. The heart and mediastinum are within normal limits. Clustered bullous formation in the apex of the left lung. No active pulmonary parenchymal or pleural disease. XR/XR chest 1V portable [id number] IMPRESSION: No acute chest abnormality.
[2021-09-28 11:42] VITALS: BP 122/88; PULSE 84; O2SAT 98
--- NOTE | 2021-09-29 15:06 | DCPLANNER ---
housing assistant property manager had message to speak with patient about getting established with a primary care physician. housing assistant property manager unable to speak with patient at this time.
== END 2021-09-28 11:43 | disposition home or self-care (01) ==
PROVIDERS: Emergency Provider Family Medicine
DX: J44.9 Chronic obstructive pulmonary disease, unspecified (principal); M54.2 Cervicalgia; G89.29 Other chronic pain; F17.210 Nicotine dependence, cigarettes, uncomplicated
CPT/HCPCS: 71045; 99283

== ENCOUNTER 2022-02-08 11:44 | Emergency (ER) | payer SELFPAY ==
[2022-02-08 12:21] VITALS: BP 129/84; PULSE 51; RESP 16; TEMP 36.4; O2SAT 100; BMI 21.4
--- NOTE | 2022-02-08 12:27 | W.ED.DENTAL ---
HPI - Dental/Oral General: Chief complaint: Dental/Oral Stated complaint: Right jaw swollen, can't hear in right ear Time Seen by Provider: 02/08/22 12:27 Source: patient Mode of arrival: ambulatory Limitations: no limitations History of Present Illness: Patient is a 51-year-old male presents to ED today with complaint of right lower dental pain over the past couple of days. Patient states he has noticed a little bit of facial swelling. He is not having any difficulty eating or drinking or swallowing or controlling secretions. Patient has had multiple dental extractions due to severe dental disease. He has no other complaints at this time. MD Complaint: tooth pain Onset (ago): day(s) Duration: constant Severity: moderate Relieving factors: nothing Exacerbating factors: chewing Context: history of dental caries and poor dental care Associated symptoms: Denies ear or mastoid pain, fever(s) or odynophagia Review of Systems Const: Denies: fever(s), chills, body aches, fatigue or malaise ENMT: Reports: dental pain; Denies: throat pain, enlarged tonsils, odynophagia, hoarseness, mouth pain, swelling of lips/tongue, oral sores, bleeding gums or ear or mastoid pain Card: Denies: chest pain Resp: Denies: dyspnea GI: Denies: nausea or vomiting Musc: Denies: neck pain Skin/Breast: Denies: rash Neuro: Denies: headache(s) PFS ED PFSH: Medical History COPD (chronic obstructive pulmonary disease) Surgical History History of appendectomy Family History Mother Cancer Social History Smoking and tobacco status: current every day smoker Quit status (tobacco): not considering quitting Second hand smoke exposure: No Alcohol intake: never Lives independently: Yes Physical Exam Const: COMMON NORMALS: no acute distress, patient oriented x3, no limitations and alert GENERAL APPEARANCE: cooperative HENMT: FACE & SINUS: normal facial exam and sinuses nontender; no erythema, no edema and no fluctuance TEETH & GINGIVA: Yes caries, Yes edentulous (top; several teeth pulled from bottom as well) and Yes poor dentition TEETH & GINGIVA IMAGES: 1. severe decay; swelling along gingiva/possible early abscess; no obvious drainable abscess at this time; no submandibular swelling noted THROAT: posterior oropharynx normal, tonsils normal and uvula midline Eye: GENERAL EYE: appearance normal, both eyes and all related structures Neck/C-Spine: GENERAL: Yes normal visual inspection, No anterior neck swelling and No submandibular swelling Resp: COMMON NORMALS: normal respiratory effort Cardio: COMMON NORMALS: regular rate and regular rhythm RATE: regular rate RHYTHM: regular rhythm Neuro: COMMON NORMALS: patient oriented x3 and CN's II-XII intact bilaterally SENSORIUM/ORIENTATION: Yes alert Skin: COMMON NORMALS: no rashes or lesions noted GENERAL SKIN EXAM: no rashes or lesions noted Course Vital Signs: Vital signs: Vital Signs Temperature 97.5 F L 02/08/22 12:21 Pulse Rate 51 L 02/08/22 12:21 Respiratory Rate 16 02/08/22 12:21 Blood Pressure 129/84 02/08/22 12:21 Pulse Oximetry 100 02/08/22 12:21 Oxygen Delivery Me thod 02/08/22 12:21 MDM - Dental/Oral Medical Decision Making Will place on antibiotics and recommends he follow-up with a dentist as soon as possible. He was provided dental resources. Return to ED precautions given. Discharge Plan Discharge Patient Disposition: Home Clinical Impression: Dental caries, Toothache Condition: Stable Prescriptions: New penicillin V potassium 500 mg tablet 500 mg PO Q8H 7 Days Qty: 21 0RF diclofenac sodium 50 mg tablet,delayed release (DR/EC) 50 mg PO Q12H PRN (Reason: pain) Qty: 20 0RF No Action albuterol sulfate 90 mcg/actuation HFA aerosol inhaler 2 inh INHALATION Q4H PRN (Reason: shortness of breath or wheezing) Qty: 18 0RF albuterol sulfate [ProAir HFA] 90 mcg/actuation HFA aerosol inhaler 2 inh inhalation Q4H PRN (Reason: shortness of breath or wheezing) Qty: 6.7 0RF Medrol (Levon) 4 mg tablets,dose pack See Rx Instructions .ROUTE .COMPLEX Qty: 21 0RF Rx Instructions: orally per package directions albuterol sulfate 90 mcg/actuation HFA aerosol inhaler 2 inh INHALATION Q4H PRN (Reason: shortness of breath or wheezing) Qty: 18 0RF diclofenac sodium 75 mg tablet,delayed release (DR/EC) 75 mg PO Q12H PRN (Reason: pain) Qty: 20 0RF albuterol sulfate 90 mcg/actuation HFA aerosol inhaler 2 inh INHALATION Q4H PRN (Reason: shortness of breath or wheezing) Qty: 18 0RF Discharge Orders: Discharge ED (Routine); Ordered 02/08/22 Ordered By: Chen Newton Patient Instructions: Dental Caries (Cavities), Toothache (ED) Coding Level of Care Code ED Secretary To The Vice President for Shahnaz Neumann
== END 2022-02-08 13:03 | disposition home or self-care (01) ==
PROVIDERS: Emergency Provider Physician Assistant
DX: K02.9 Dental caries, unspecified (principal); J44.9 Chronic obstructive pulmonary disease, unspecified; F17.210 Nicotine dependence, cigarettes, uncomplicated
CPT/HCPCS: 99283

== ENCOUNTER 2022-08-22 12:13 | Inpatient (IN) | payer MEDICAID, SELFPAY ==
[2022-08-22 12:52] LABS: Basophils # 0.1 10^3/uL (0.0-0.1); Basophils % 0.7 %; Eosinophils # 0.2 10^3/uL (0.0-0.8); Eosinophils % 1.9 %; Hematocrit 45.6 % (42.0-52.0); Hemoglobin 14.7 g/dL (11.7-16.6); Lymphocytes % 24.3 %; Mean Corpuscular HGB Conc 32.2 g/dL (30.0-36.0); Mean Corpuscular Hemoglobin 31.5 pg (28.0-34.0); Mean Corpuscular Volume 97.9 fl (80-94); Mean Platelet Volume 9.3 fL (7.4-10.4); Monocytes # 0.6 10^3/uL (0.2-0.9); Monocytes % 7.2 %; Neutrophils # 5.28 10^3/uL (1.8-7.7); Neutrophils % 65.7 %; Nucleated Red Blood Cells % 0 %; Platelet Count 425 10^3/cmm (130-400); Red Blood Count 4.66 10^6/uL (4.1-5.3); Red Cell Distribution Width 13.6 % (12.1-15.1)
[2022-08-22 12:54] VITALS: BP 124/76; PULSE 60; RESP 17; TEMP 36.5; O2SAT 99; BMI 22.2
[2022-08-22 13:09] LABS: Alanine Aminotransferase 6 U/L (0-41); Albumin Level 4.1 g/dL (3.5-5.2); Alkaline Phosphatase 46 U/L (40-130); Anion Gap 14.4 (5-19); Aspartate Amino Transferase 11 U/L (0-40); Blood Urea Nitrogen 11 mg/dL (6-20); Calcium 9.1 mg/dL (8.5-10.5); Carbon Dioxide 27 mmol/L (22-29); Chloride 104 mmol/L (98-107); Globulin 2.8 g/dL (1.3-4.6); Glomerular Filtration Rate 102.3 mL/min (90-130); Glucose 99 mg/dL (65-115); Osmolality Calculated 291 mOsm/kg (285-295); Potassium 4.4 mmol/L (3.5-5.1); Sodium 141 mmol/L (136-145); Total Bilirubin 0.2 mg/dL (0.15-1.2); Total Protein 6.9 g/dL (6.6-8.7)
[2022-08-22 13:12] LABS: Acetaminophen < 5.0 ug/mL (10-30); Salicylate < 0.3 mg/dL (3-10)
[2022-08-22 14:14] VITALS: O2SAT 97
--- NOTE | 2022-08-22 14:19 | ED.C_ITS ---
HPI - Psych General: Chief Complaint: Psychiatric Symptoms Stated Complaint: mhe Time Seen by Provider: 08/22/22 12:24 Source: patient Mode of arrival: ambulatory History of Present Illness: 52-year-old male presents to the emergency room with complaints of auditory and visual hallucinations. He has been having these for the last several months. He hears voices associated with different characters related to his name. He also is seeing what he describes as people who appear to be bloody. Some of the voices are more aggressive than the others. Despite all this he has not any homicidal or suicidal ideation. He does not recall previously being treated for psychosis in the past just his ADHD as a child. MD complaint: other Onset (ago): minute(s) Duration: constant History of same: Yes Relieving factors: none Exacerbating factors: none Associated psychiatric symptoms: none Associated symptoms: Reports auditory hallucinations and visual hallucinations Treatments prior to arrival: none Review of Systems Const: Denies: fever(s), chills, body aches, change in appetite, fatigue or malaise ENMT: Denies: throat pain, ear or mastoid pain, nasal discharge or nasal congestion Card: Denies: chest pain, palpitations, irregular heart rhythm, edema, swelling of feet/ankles, dyspnea on exertion or orthopnea Resp: Denies: dyspnea, productive cough or non-productive cough GI: Denies: abdominal pain, nausea, vomiting, hematemesis, coffee ground emesis, diarrhea, constipation, bloating, hematochezia or melena : Denies: flank pain, dysuria, urinary frequency or urinary urgency Skin/Breast: Denies: rash or pruritus Neuro: Reports: headache(s) Psych: Reports: visual hallucinations and auditory hallucinations PFSH ED PFSH: Medical History COPD (chronic obstructive pulmonary disease) Surgical History History of appendectomy Family History Mother Cancer Social History Smoking and tobacco status: current every day smoker Quit status (tobacco): not considering quitting Second hand smoke exposure: No Alcohol intake: never Lives independently: Yes Physical Exam Const: GENERAL APPEARANCE: cooperative and comfortable ORIENTATION/CONSCIOUSNESS: Yes awake, Yes oriented to person, Yes oriented to place and Yes oriented to time HENMT: COMMON NORMALS: normocephalic, atraumatic and hearing grossly normal bilaterally HEAD & SCALP: normocephalic and atraumatic Resp: COMMON NORMALS: normal respiratory effort, No retractions, No use of accessory muscles and clear to auscultation bilaterally AUSCULTATION: clear to auscultation bilaterally Cardio: COMMON NORMALS: regular rate, regular rhythm and No murmurs present (Cardio) RATE: regular rate RHYTHM: regular rhythm GI: COMMON NORMALS: Soft to palpation and No hepatosplenomegaly present AU SCULTATION: Yes normoactive bowel sounds PALPATION: Yes Soft to palpation, No Tenderness to palpation present (GI), No Guarding due to palpation present (GI) and Yes No hepatosplenomegaly present Extremity: COMMON NORMALS: normal to inspection, capillary refill normal, no clubbing, cyanosis or edema, no calf tenderness and no pedal edema Neuro: SENSORIUM/ORIENTATION: Yes oriented to person, Yes oriented to place and Yes oriented to time Skin: COMMON NORMALS: no rashes or lesions noted GENERAL SKIN EXAM: no rashes or lesions noted Course Vital Signs: Vital signs: Vital Signs Temperature 97.7 F 08/22/22 12:54 Pulse Rate 60 08/22/22 12:54 Respiratory Rate 17 08/22/22 12:54 Blood Pressure 124/76 08/22/22 12:54 Pulse Oximetry 97 08/22/22 14:14 Oxygen Delivery Me thod 08/22/22 14:14 MDM - Psych Medical Decision Making Patient denies any suicidal homicidal ideation. He is auditory and visual loose Nations been going on for some time he was treated for ADHD when he was a child. Discussed Dr. Villalobos patient is agreeable to admission Dr. Villalobos feels he should be admitted to initiate medications to control his symptoms. Orders written. Medical Records I reviewed the patient's medical records. Lab Data I reviewed the patient's lab results. 08/22/22 12:40 08/22/22 12:40 Laboratory Results WBC 8.0 10^3/uL (4.0-10.0) 08/22/22 12:40 RBC 4.66 10^6/uL (4.1-5.3) 08/22/22 12:40 Hgb 14.7 g/dL (11.7-16.6) 08/22/22 12:40 Hct 45.6 % (42.0-52.0) 08/22/22 12:40 MCV 97.9 fl (80-94) H 08/22/22 12:40 MCH 31.5 pg (28.0-34.0) 08/22/22 12:40 MCHC 32.2 g/dL (30.0-36.0) 08/22/22 12:40 RDW 13.6 % (12.1-15.1) 08/22/22 12:40 Plt Count 425 10^3/cmm (130-400) H 08/22/22 12:40 MPV 9.3 fL (7.4-10.4) 08/22/22 12:40 Neut % (Auto) 65.7 % 08/22/22 12:40 Lymph % (Auto) 24.3 % 08/22/22 12:40 [place] % (Auto) 7.2 % 08/22/22 12:40 Eos % (Auto) 1.9 % 08/22/22 12:40 Baso % (Auto) 0.7 % 08/22/22 12:40 Neut # (Auto) 5.28 10^3/uL (1.8-7.7) 08/22/22 12:40 Lymph # (Auto) 2.0 10^3/uL (0.8-4.8) 08/22/22 12:40 [place] # (Auto) 0.6 10^3/uL (0.2-0.9) 08/22/22 12:40 Eos # (Auto) 0.2 10^3/uL (0.0-0.8) 08/22/22 12:40 Baso # (Auto) 0.1 10^3/uL (0.0-0.1) 08/22/22 12:40 Nucleated RBC % (auto) 0 % 08/22/22 12:40 Nucleated RBCs # 0.0 /100WBC 08/22/22 12:40 Sodium 141 mmol/L (136-145) 08/22/22 12:40 Potassium 4.4 mmol/L (3.5-5.1) 08/22/22 12:40 Chloride 104 mmol/L (98-107) 08/22/22 12:40 Carbon Dioxide 27 mmol/L (22-29) 08/22/22 12:40 Anion Gap 14.4 (5-19) 08/22/22 12:40 BUN 11 mg/dL (6-20) 08/22/22 12:40 Creatinine 0.8 mg/dL (0.7-1.2) 08/22/22 12:40 GFR Calculation 102.3 mL/min (90-130) 08/22/22 12:40 Glucose 99 mg/dL (65-115) 08/22/22 12:40 Calculated Osmolality 291 mOsm/kg (285-295) 08/22/22 12:40 Calcium 9.1 mg/dL (8.5-10.5) 08/22/22 12:40 Total Bilirubin 0.2 mg/dL (0.15-1.2) 08/22/22 12:40 AST 11 U/L (0-40) 08/22/22 12:40 ALT 6 U/L (0-41) 08/22/22 12:40 Alkaline Phosphatase 46 U/L (40-130) 08/22/22 12:40 Total Protein 6.9 g/dL (6.6-8.7) 08/22/22 12:40 Albumin 4.1 g/dL (3.5-5.2) 08/22/22 12:40 Globulin 2.8 g/dL (1.3-4.6) 08/22/22 12:40 Salicylates < 0.3 mg/dL (3-10) L 08/22/22 12:40 Acetaminophen < 5.0 ug/mL (10-30) L 08/22/22 12:40 Discharge Plan Discharge Patient Disposition: Admitted As Inpatient Clinical Impression: Psychosis Condition: Stable Discharge Diet: Usual diet Discharge Activity: Resume usual activity Coding Level of Care Code 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
[2022-08-22 16:15] VITALS: BP 145/82; PULSE 52; RESP 17; TEMP 36.7; O2SAT 99
[2022-08-22 18:26] LABS: Amphetamines Screen Urine Positive (Negative); Barbiturates Screen Urine Negative (Negative); Benzodiazepines Screen Urine Negative (Negative); Cocaine Screen Urine Negative (Negative); Opiate Screen Urine Negative (Negative); PCP Screen Urine Negative (Negative); THC Screen Urine Positive (Negative)
[2022-08-22] MEDS: nicotine 2 mg Gum BUCCAL (18:37)
--- NOTE | 2022-08-22 18:58 | PC.NURSE ---
Patient presents to the unit as very nervous. Rubbing his hands together and making sharp movements. He states he has been hearing different voices calling him by his first, middle, and last names. He says one will call him Alexandr and say, it'll be okay, and another will call him Demond and say, it's not going to be okay. He states he often sees his people sitting around a table and that he conversates with one of them that he believes to be his female cousin that overdosed and when she was 22 of heroine and alcohol abuse. He says his mother of cancer when he was very young and he wasn't allowed to tell her goodbye because he was so young. Patient also endorses seeing several shadows that pop up momentarily that make him feel as if he might have to defend himself and causes him to check his doors and house to make sure no one is there. Patient denies HI. When asked if he had ever had suicidal thoughts the patient said, I can't say yay or nay because I don't believe in that. I think if you do that you go to hell. So no I guess. He says he is very close to his sister who lives next door to him. When talking about his family during the assessment he cried quite a bit. Patient says he saw a psychiatrist as a child because of how he was acting. He states he is also having trouble sleeping because he will wake up at 2 am every day thinking about what I need to do. I don't have a job right now so I'll think about stuff like that. Like, hey, how am I gonna get that ya know? He endorses using marijuana recreational and says he mostly uses it for sleep. Patient denies the current use of any other drugs. Patient cooperative throughout assessment. [ End ]
[2022-08-22 20:10] VITALS: BP 127/82; PULSE 79; RESP 16; TEMP 36.7; O2SAT 94
[2022-08-22] MEDS: OLANZapine 5 mg ODT PO (23:51)
[2022-08-23 06:00] VITALS: BP 118/72; PULSE 60; RESP 14; TEMP 36.5; O2SAT 97
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
[2022-08-23] MEDS: nicotine 2 mg Gum BUCCAL ×3 (10:51→21:03)
[2022-08-23 14:00] VITALS: BP 104/66; PULSE 83; RESP 20; TEMP 36.7; O2SAT 97
[2022-08-23] MEDS: trazodone 50 mg Tablet PO (20:11)
[2022-08-23] MEDS: hyDROXYzine 25 mg Capsule 50 MG PO (20:11)
[2022-08-23 20:20] VITALS: BP 146/78; PULSE 62; RESP 17; TEMP 37; O2SAT 98
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
[2022-08-24] MEDS: nicotine 2 mg Gum BUCCAL ×3 (09:58→18:45)
[2022-08-24 14:00] VITALS: BP 107/70; PULSE 58; RESP 18; TEMP 36.6; O2SAT 97
[2022-08-24] MEDS: ARIPiprazole 10 mg Tablet PO (14:12)
--- NOTE | 2022-08-24 16:49 | P.NPUPN_ITS ---
Subjective NPU Subjective: Presented today reporting that he is having significant issues with his family and staying well. He did report that he has spoken with his sister and his sister is suggesting that when he gets out of the hospital she could be supportive and assist him in stabilizing. He reports that he has a ttempted to get disability in the past and is currently trying to understand how to approach his life from the standpoint of employment or disability or what ever. He agreed to a trial of Abilify 10 mg p.o. every morning after discussion of the risks, benefits and alternatives he understood and agreed to proceed as is documented in this note. Mental Status Exam MSE Comments: This is a slender white male with hospital scrubs on with limited grooming but adequate eye contact. No abnoramal movements except for mild psychomotor agitation. Cooperative with exam in mild to moderate distress. Speech was slightly decreased rate and volume with some mumbling. Mood described as okay, affect is congruent. Thought process, organized. Thought content: patient denies suicidal or homicidal ideation, reports paranoia and no other delusions noted, and denies any current auditory or visual hallucinations. Att ention and concentration are intact and memory appeared reliable but none were formally tested. He is alert and oriented times three. Insight and judgement are limited versus impaired. Impulse control is limited versus impaired. Vitals/I&O/Wt Last Vital Signs Temp 98 F 08/24/22 14:00 Pulse 58 L 08/24/22 14:00 Resp 18 08/24/22 14:00 BP 107/70 08/24/22 14:00 Pulse Ox 97 08/24/22 14:00 O2 Del Method 08/24/22 14:00 Data NPU 08/22/22 12:40 08/22/22 12:40 A&P Assessment and plan (1) Psychosis: (2) COPD (chronic obstructive pulmonary disease): Plan This is a 52 year old white man with a history of trauma, methamphetamine use and genetic loading for mental health and addiction issues who presents with recent methamphetamine use reporting paranoia and auditory hallucinations and open to starting a medication at this time. 1. Continue current medications. Start Abilify 10 mg p.o. every morning 2. Encourage individual, group and milieu therapy 3. Continue q-15 minute check for safety 4. Recommend sober living treatment at the highest level of care to which the patient is willing to commit. Involuntary Hold Information 96 Hour Hold: 96 Hour Involuntary Admission: No Attestations NPU Medical Necessity Statement*: Inpatient hospitalization is medically necessary and the clinically appropriate intervention at this time. We will monitor medications and make changes as indicated. Likely length of stay is 2-4 days. Coding Level of Care Code Acute Code for Chg Fwd Diagnoses Psychosis F29 COPD (chronic obstructive pulmonary disease) J44.9
[2022-08-24 21:14] VITALS: BP 129/80; PULSE 60; RESP 18; TEMP 36.6; O2SAT 98
[2022-08-24] MEDS: trazodone 50 mg Tablet PO (21:24)
[2022-08-24] MEDS: acetaminophen 325 mg Tablet 650 MG PO (21:24)
[2022-08-24] MEDS: hyDROXYzine 25 mg Capsule 50 MG PO (21:24)
[2022-08-24 22:30] LABS: Specific Gravity, Urine 1.015 (1.005-1.030); Urine Appearance Clear (CLEAR); Urine Color Yellow (Yellow); pH Urine 8 (5-7)
[2022-08-24 22:31] LABS: Bilirubin Urine Neg (Negative); Blood Urine Neg (Negative); Glucose Urine UA Norm (Normal); Ketones Urine Negative (Negative); Leukocyte Esterase Urine Negative (Negative); Nitrate Urine Negative (Negative); Protein Urine Neg (Negative); Urobilinogen Urine Norm (Negative)
[2022-08-25 06:00] VITALS: BP 122/74; PULSE 75; RESP 15; TEMP 36.6; O2SAT 97
[2022-08-25] MEDS: nicotine 2 mg Gum BUCCAL (09:43)
[2022-08-25] MEDS: ARIPiprazole 10 mg Tablet PO (09:43)
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
[2022-08-25 11:06] VITALS: BP 122/74; PULSE 75; RESP 15; TEMP 36.6; O2SAT 97
[2022-08-25] MEDS: acetaminophen 325 mg Tablet 650 MG PO (12:50)
[2022-08-25 14:00] VITALS: BP 152/90; PULSE 62; RESP 20; TEMP 36.4; O2SAT 96
== END 2022-08-25 15:00 | disposition home or self-care (01) | DRG 897 ==
LOC: ER 15:17 → NP 15:56
PROVIDERS: Admitting Provider Psychiatry & Neurology Psychiatry; Emergency Provider Family Medicine; Visit Provider Psychiatry & Neurology Psychiatry
DX: F15.959 Other stimulant use, unspecified with stimulant-induced psychotic disorder, unspecified (principal); F17.210 Nicotine dependence, cigarettes, uncomplicated; F12.90 Cannabis use, unspecified, uncomplicated; J44.9 Chronic obstructive pulmonary disease, unspecified
CPT/HCPCS: 36415; 80053; 80306; 80307; 81001; 85025; 97150; 97165; 99238; 99285

== ENCOUNTER → 2022-11-03 11:41 | Outpatient (BNVA) | payer OTHER, SELFPAY | PROVIDERS: Visit Provider Nurse Practitioner Psychiatric/Mental Health | DX: Z79.899 Other long term (current) drug therapy (principal); F15.14 Other stimulant abuse with stimulant-induced mood disorder; F17.210 Nicotine dependence, cigarettes, uncomplicated; Z87.820 Personal history of traumatic brain injury; F12.90 Cannabis use, unspecified, uncomplicated; G25.71 Drug induced akathisia | CPT/HCPCS: 80053; 80061; 83036 ==

== ENCOUNTER 2022-11-25 14:01 | Outpatient (CLI) | payer MEDICAID, SELFPAY ==
--- NOTE | 2022-11-25 14:15 | CT_ITS ---
WS: [id number] LDCT LUNG CANCER SCREENING HISTORY: screening TECHNIQUE: Axial imaging performed from the apices to 1 cm below the costophrenic angles. Coronal and sagittal reformats are submitted with axial MIP series. All CT scans at [facility] use at least one of these dose optimization techniques: automated exposure control; mA and/or kV adjustment per patient size (includes targeted exams where dose is matched to clinical indication); or iterativ e reconstruction. DLP: 47.99 mGy.cm DIvol: Mean CTDIvol: 0.70 (mGy) COMPARISON: 12/24/2019 Diagnostic quality: Breathing motion artifact. Lungs: Small nodules may be obscured by the motion artifact. No nodules are identified. No mass. 3 mm intrapulmonary minor fissure nodule. Typically these are benign. No pneumonia. No groundglass opacif ications. No endobronchial lesions. Heart: Normal size heart with no pericardial effusion.. Other findings: Minimal atherosclerosis aorta. No adenopathy. No adrenal mass. CT/CT lung screening 26799 IMPRESSION: LUNG-RADS: 1-Negative FOLLOW UP: 12 Month: Continue annual screening with LDCT OTHER FINDINGS (S MODIFIER): None.
== END 2022-11-25 14:02 | disposition home or self-care (01) ==
PROVIDERS: PCP Family Medicine; Visit Provider Family Medicine
DX: Z12.2 Encounter for screening for malignant neoplasm of respiratory organs (principal); F17.219 Nicotine dependence, cigarettes, with unspecified nicotine-induced disorders
CPT/HCPCS: 71271

== ENCOUNTER 2022-11-30 12:26 | Outpatient (CLI) | payer MEDICAID, SELFPAY ==
[2022-11-30 12:55] VITALS: BMI 22.5
--- NOTE | 2022-11-30 12:56 | ECG_ITS ---
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 Interpretive Statements NAME OF STUDY: TREADMILL STRESS TEST INDICATION: [Dyspnea, ] pt did not hit target. stated he was too out of breath and couldnt continue. EXERCISE DATA: The patient was exercised by Navneet protocol. Baseline heart rate was 68 beats per minute. Baseline blood pressure was 89/69 millimeters of mercury. Target heart rate was 144 beats per minute. Maximum heart rate achieved was 124 which was 86% of the target heart rate. Maximum blood pressure was 141/72 millimeters of mercury. Total exercise time was 3 minutes 31 seconds. Maximum METs achieved was 7 . the reason for ending the test was maximal effort achieved. The patient complained of shortness of breath during the stress test, which then resolved at the end of the test. ELECTROCARDIOGRAM: BASELINE: Showed sinus rhythm, normal axis, no significant ST-T changes at the baseline noted. [] EXERCISE: At the peak exercise level, [] No significant ST-T changes suggestive of ischemia noted. [] RECOVERY: During the recovery period, heart rate dropped appropriately. No significant ST-T changes in the recovery suggestive of ischemia noted. [] CONCLUSION: 1. Exercise capacity fair 2. Heart rate response was suboptimal. 3. Blood pressure response was appropriate 4. Symptoms not suggestive of ischemia. 5. Stress test is indeterminate to assess ischemia as patient could not reach target heart rate. Electronically Signed On 12-13-2022 17:40:18 CDT by Shelton Norman M.D. [email or web address]
[2022-11-30 13:58] VITALS: BP 98/72; PULSE 74
== END 2022-11-30 12:27 | disposition home or self-care (01) ==
LOC: CDL 12:27
PROVIDERS: PCP Family Medicine; Visit Provider Family Medicine
DX: R55 Syncope and collapse (principal); R06.00 Dyspnea, unspecified
CPT/HCPCS: 93017

== ENCOUNTER → 2022-12-05 13:50 | Outpatient (BNVA) | payer OTHER, SELFPAY | PROVIDERS: Visit Provider Nurse Practitioner Psychiatric/Mental Health | DX: Z03.89 Encounter for observation for other suspected diseases and conditions ruled out (principal); F15.14 Other stimulant abuse with stimulant-induced mood disorder; F17.210 Nicotine dependence, cigarettes, uncomplicated; G25.71 Drug induced akathisia; F12.90 Cannabis use, unspecified, uncomplicated; Z87.820 Personal history of traumatic brain injury | CPT/HCPCS: 81001 ==

== ENCOUNTER 2022-12-08 09:59 | Outpatient (CLI) | payer MEDICAID, SELFPAY ==
[2022-12-08 10:14] VITALS: PULSE 79; RESP 18; O2SAT 98
[2022-12-08] MEDS: albuterol 2.5 mg/3 mL Neb INHALATION (10:14)
[2022-12-08 10:19] VITALS: PULSE 84
== END 2022-12-08 10:00 | disposition home or self-care (01) ==
LOC: RT 10:00
PROVIDERS: PCP Family Medicine; Visit Provider Family Medicine
DX: R06.00 Dyspnea, unspecified (principal); F17.219 Nicotine dependence, cigarettes, with unspecified nicotine-induced disorders
CPT/HCPCS: 94060; 94726; 94729; J7613

== ENCOUNTER 2023-01-03 07:46 | Outpatient (CLI) | payer MEDICAID, SELFPAY ==
--- NOTE | 2023-01-03 07:55 | USCV_ITS ---
Alexandr Marley Age: 52 Gender: M : 1970 Exam Date: 01/03/2023 08:07 Ordering Phys: Aditi Rodriguez DO Technologist: MELINDA Exam Location: [facility] [place] Indication: Syncope and Collapse Risk Factors: Previous Vascular Surgery: Right Brachial BP: / Left Brachial BP: / Right Left Velocity (cm/s) Spectral Plaque Velocity (cm/s) Spectral Plaque Syst/Diast Broadening Syst/Diast Broadening 92.60/ 25.40 Prox CCA 88.90 / 34.20 89.30/ 32.00 Mid CCA 80.30 / 26.50 70.10/ 26.50 Distal CCA 85.40 / 35.00 67.60/ 28.00 Prox ICA 78.60 / 37.60 73.00/ 32.60 Mid ICA 73.50 / 38.50 87.80/ 35.70 Distal ICA 82.00 / 38.50 67.60 ECA 70.90 0.95 ICA/CCA 0.92 Antegrade Vertebral Antegrade 32.90/ 9.80 cm/s 68.40/ 25.60 cm/s Tri Subclavian Tri 73.80 90.40 CONCLUSIONS Right ICA stenosis <50%. Mild atheromatous plaque right carotid bulb/ICA. Left ICA stenosis <50%. Mild atheromatous plaque left carotid bulb/ICA. Normal antegrade Doppler flow noted in the right vertebral artery. Normal antegrade Doppler flow noted in the left vertebral artery. Naman Michael MD (Electronically Signed) Final Date: 03 January 2023 15:41 S
== END 2023-01-03 07:47 | disposition home or self-care (01) ==
PROVIDERS: PCP Family Medicine; Visit Provider Family Medicine
DX: R55 Syncope and collapse (principal); I65.23 Occlusion and stenosis of bilateral carotid arteries
CPT/HCPCS: 93880

== ENCOUNTER 2023-02-20 14:11 | Outpatient (CLI) | payer MEDICAID, SELFPAY ==
--- NOTE | 2023-02-20 14:30 | USCV_ITS ---
Alexandr Marley Age: 52 Gender: M : 1970 Exam Date: 02/20/2023 14:53 Ordering Phys: Nomi Mathew MD ([email or web address]) Technologist: Elma Orona Exam Location: [facility] [place] Indication: Palpitations, SOB, STEWART BP: 153 / 86 HR: 65 Rhythm: Sinus Technical Quality: Good MEASUREMENTS (Male / Female) Normal Values 2D ECHO LV Diastolic Diameter PLAX 4.2 cm 4.2 - 5.9 / 3.9 - 5.3 cm LV Systolic Diameter PLAX 3.5 cm IVS Diastolic Thickness 1.3 cm 0.6 - 1.0 / 0.6 - 0.9 cm IVS Systolic Thickness 1.1 cm LVPW Diastolic Thickness 0.8 cm 0.6 - 1.0 / 0.6 - 0.9 cm LVPW Systolic Thickness 1.4 cm LVOT Diameter 2.0 cm LV Ejection Fraction 2D Teich 37.2 % LV Ejection Fraction MOD 2C 53.0 % LV Ejection Fraction 2C AL 53.2 % LA Diameter 2.5 cm LA Width 2.3 cm LA Height 3.1 cm RA Width 2.7 cm RA Height 3.4 cm Aorta at Sinotubular Diameter 2.6 cm IVC Diameter 1.2 cm M-MODE Aortic Annulus Diameter 3.1 cm LA Ao Ratio MM 0.9 MV E Point Septal Separation 0.7 cm DOPPLER AV Peak Velocity 159.0 cm/s LVOT Peak Velocity 110.0 cm/s AV Area Cont Eq vti 2.0 cm squared AV Area Cont Eq pk 2.3 cm squared MV Peak Velocity 84.0 cm/s MV Area PHT 2.9 cm squared Mitral E to A Ratio 1.5 MV E' Velocity 48.0 cm/s Mitral E to MV E' Ratio 7.2 Mitral E to LV E' Lateral Ratio 6.8 Mitral E to LV E' Septal Ratio 7.6 TR Peak Velocity 79.8 cm/s TR Peak Gradient 2.5 mmHg Right Atrial Pressure 5.0 mmHg Pulmonary Artery Systolic Pressu 7.5 mmHg PV Peak Velocity 96.0 cm/s RV Acceleration Time 0.1 s RV Ejection Time 0.3 s RV AcT/ET 0.3 FINDINGS Left Ventricle Mild diffuse hypokinesia of the left ventricle with an ejection fraction of 53%. Right Ventricle The right ventricle is normal in size and function. Right Atrium The right atrium is normal in size. Left Atrium The left atrium is normal in size. Mitral Valve No gross valvular abnormalities were noted Aortic Valve No gross abnormalities Tricuspid Valve No gross abnormalities Pulmonic Valve Pulmonic valve not well visualized. Pericardium Normal pericardium without effusion. Aorta Normal ascending aorta dimension. IVC Normal inferior vena cava. CONCLUSIONS Mild diffuse hypokinesia of the left ventricle with an ejection fraction of 53%. No gross valvular abnormalities noted. Normal cardiac chamber sizes. There is no pericardial effusion. There are no intracardiac masses. No similar previous studies are available for comparison Dr Nomi Mathew MD [facility] (Electronically Signed) Final Date: 22 February 2023 10:07 S
== END 2023-02-20 14:12 | disposition home or self-care (01) ==
LOC: RAD 14:12
PROVIDERS: PCP Family Medicine; Visit Provider Internal Medicine Cardiovascular Disease
DX: R06.09 Other forms of dyspnea (principal); R06.02 Shortness of breath
CPT/HCPCS: 93306

== ENCOUNTER 2023-03-14 08:50 | Outpatient (CLI) | payer MEDICAID, SELFPAY ==
--- NOTE | 2023-03-14 | ECG_ITS ---
[facility] Test Date: 2023-03-14 Pat Name: Alexandr Marley Department: Room: Gender: Male Bulk Delivery Driver: Aldoestuardo Velez : 1970 Requested By: Nomi Mathew Order Number: [id number] Rick MD: Nomi Mathew M.D. Interpretive Statements NAME OF STUDY: LEXISCAN SESTAMIBI STRESS TEST INDICATION: Syncope, PROCEDURE: At the baseline, the EKG revealed sinus bradycardia with some nonspecific T wave changes. The baseline heart was 51 bpm with a blood pressue of 164/97 mm of Hg Lexiscan was infused over a period of 20 seconds. A total of 0.4 milligrams of Lexiscan was infused. The stress phase was continued for a total of 5 minutes. Heart rate at the end of the stress phase was 92 bpm with a blood pressure 134/92 mm of Hg. The EKG at the peak infusion revealed no significant changes. Sestamibi was injected 20 seconds after the Lexiscan infusion. Heart rate at the end of the recovery phase was 87 bpm with a blood pressure of 140/94 mm of Hg. CONCLUSION: 1. No significant EKG changes with the LexiScan infusion 2. No LexiScan induced chest pain or cardiac arrhythmia 3. Normal blood pressure and heart rate response 4. Sestamibi/sestamibi perfusion scan pending; see separate report. Electronically Signed On 03-17-2023 19:47:49 CDT by Nomi Mathew M.D. [email or web address]
[2023-03-14 09:06] VITALS: BMI 23.3
--- NOTE | 2023-03-14 09:07 | NMCV_ITS ---
NM pallavi perf SPECT r/s* [id number] Alexandr Marley Age: 52 Gender: M : 1970 Exam Date: 03/14/2023 09:48 Ordering Phys: Nomi Mathew MD ([email or web address]) Technologist: ARLENE Braun Exam Location: [facility] Indications: CHEST PAIN, SHORTNESS OF BREATH STRESS TEST Please see separate stress test report in [facility] for full findings IMAGE PROTOCOL Rest/Stress 1 Lexiscan Day Radiopharmaceutical Dose (mCi) Administration Site Administered by Rest: Tc-99m 10.7 IV ARLENE Baumann Sestamibi Stress:Tc-99m 32.9 IV ARLENE Baumann Sestamibi Rest: 14-Mar-2023 60 Discovery 630 Stress: 14-Mar-2023 30 Discovery 630 0.4mg Lexiscan. Images obtained in supine and prone position. SPECT RESULTS Technical Quality: Excellent Raw Data Analysis: Normal Image Corrections: No attenuation or motion correction applied Summed Stress Score: 1 Summed Rest Score: 5 Summed Difference Score: 0 PERFUSION FINDINGS Slightly decreased tracer uptake was noted in the mid inferoseptal and apical regions. No significant reversibility was noted in these regions. FUNCTIONAL RESULTS (calculated via Gated SPECT) Stress Image LV EF (%): 46 Stress EDV (mL):129 TID: 1.15 Stress ESV (mL):70 FUNCTIONAL FINDINGS: Segmental wall motion analysis revealing mild diffuse hypokinesia left- ventricule. IMPRESSIONS 1. Myocardial perfusion imaging revealing small area of slightly decreased persistent tracer uptake in the mid inferoseptal and apical regions, suggesting myocardial scarring versus attrition artifact. 2. Slightly diminished LV ejection fraction of 46%. 3. LV wall motion analysis revealed mild diffuse hypokinesia of the left ventricle. 4. Mildly dilated LV cavity with an end-systolic volume of 70 ml. Low probability for coronary ischemia, based on the above findings. No similar previous studies are available for comparison Dr Nomi Mathew MD [facility] (Electronically Signed) Final Date: 14 March 2023 19:05 S
[2023-03-14] MEDS: regadenoson 0.4 Mg/5 ml Syringe IVP (10:23)
[2023-03-14 10:39] VITALS: BP 140/94; PULSE 86
== END 2023-03-14 08:51 | disposition home or self-care (01) ==
LOC: CDL 08:51
PROVIDERS: PCP Family Medicine; Visit Provider Internal Medicine Cardiovascular Disease
DX: R07.9 Chest pain, unspecified (principal); R06.09 Other forms of dyspnea; R55 Syncope and collapse
CPT/HCPCS: 36415; 78452; 93017; 96374; A9500; J2785

== ENCOUNTER → 2023-05-23 13:59 | Outpatient (BNVA) | payer MEDICAID, SELFPAY ==
[2023-04-11 16:12] VITALS: BP 127/86; BMI 23.4
== END ==
PROVIDERS: PCP Family Medicine; Visit Provider Nurse Practitioner Family
DX: R55 Syncope and collapse (principal)
CPT/HCPCS: 99213

== ENCOUNTER → 2023-09-15 11:12 | Outpatient (BNVA) | payer MEDICAID, SELFPAY ==
[2023-04-11 16:12] VITALS: BP 127/86; BMI 23.4
== END ==
PROVIDERS: PCP Family Medicine; Visit Provider Family Medicine
DX: R35.1 Nocturia (principal); R39.11 Hesitancy of micturition
CPT/HCPCS: 84153

== ENCOUNTER 2023-10-17 09:01 | Outpatient (CLI) | payer MEDICAID, SELFPAY ==
[2023-04-11 16:12] VITALS: BP 127/86; BMI 23.4
[2023-09-28 14:42] VITALS: BP 127/86; BMI 23.4
== END 2023-10-17 09:02 | disposition home or self-care (01) ==
PROVIDERS: PCP Family Medicine; Visit Provider Family Medicine
DX: J43.1 Panlobular emphysema (principal)
CPT/HCPCS: 94618

== ENCOUNTER 2023-11-12 07:49 | Emergency (ER) | payer MEDICAID, SELFPAY ==
[2023-09-28 14:42] VITALS: BP 127/86; BMI 23.4
[2023-11-12 08:07] VITALS: BP 118/74; PULSE 75; RESP 16; TEMP 37; O2SAT 97; BMI 22.2
[2023-11-12 08:13] LABS: Basophils # 0.1 10^3/uL (0.0-0.1); Basophils % 0.5 %; Eosinophils # 0.4 10^3/uL (0.0-0.8); Eosinophils % 2.9 %; Hematocrit 39.8 % (37-53); Lymphocytes % 15.3 %; Mean Corpuscular HGB Conc 32.7 g/dL (30-55); Mean Corpuscular Hemoglobin 30.4 pg (27-33); Mean Platelet Volume 8.6 fL (7.4-10.4); Monocytes # 1.1 10^3/uL (0.2-0.9); Monocytes % 8.5 %; Neutrophils # 9.35 10^3/uL (1.8-7.7); Neutrophils % 72.5 %; Nucleated Red Blood Cells % 0 %; Platelet Count 396 10^3/cmm (157-399); Red Blood Count 4.28 10^6/uL (3.85-5.65); Red Cell Distribution Width 14.6 % (12.1-15.1)
--- NOTE | 2023-11-12 11:16 | USR_ITS ---
PROCEDURE INFORMATION: Exam: US Right Non-Vascular Joint or Other Extremity Structure Exam date and time: 11/12/2023 11:59 AM Age: 53 years old Clinical indication: Mass or lump; Arm, upper; Right; Additional info: R axilla TECHNIQUE: Imaging protocol: Right US joint or other nonvascular extremity structure or structures. Real-time ultrasound with image documentation. Limited study. Exam focused on the upper extremity in the region of clinical interest. COMPARISON: CT lung screening [id number] 08/01/2022 14:19 FINDINGS: Soft tissues: There is a heterogeneous, mixed echogenicity mass in the right axilla. This lesion appears mixed cystic and solid. There is no vascularity within the lesion however there is some peripheral vascularity. This lesion likely represents a partially necrotic lymph node. The lesion measures about 3.7 x 2 x 3.6 cm. There was no evidence of a right axillary mass on a CT of the chest from November 25, 2022. US/US soft tissue/extremity [id number] IMPRESSION: Suspected enlarged, partially necrotic right axillary lymph node. Recommend follow-up to resolution
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
[2023-11-12 12:30] VITALS: RESP 18; O2SAT 98
--- NOTE | 2023-11-12 18:12 | DCPLANNER ---
Sent follow up request to surgery clinic 11/12/23 [id number]
== END 2023-11-12 12:31 | disposition home or self-care (01) ==
PROVIDERS: Emergency Provider Family Medicine; PCP Family Medicine
DX: L02.411 Cutaneous abscess of right axilla (principal); J44.9 Chronic obstructive pulmonary disease, unspecified; F17.210 Nicotine dependence, cigarettes, uncomplicated
CPT/HCPCS: 76882; 85025; 99284

== ENCOUNTER 2023-11-14 08:20 | Emergency (ER) | payer MEDICAID, SELFPAY ==
[2023-09-28 14:42] VITALS: BP 127/86; BMI 23.4
[2023-11-14 08:37] VITALS: BP 98/71; PULSE 75; RESP 16; TEMP 36.7; O2SAT 96
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
--- NOTE | 2023-11-15 09:52 | DCPLANNER ---
Message sent to [facility] surgery
== END 2023-11-14 09:42 | disposition home or self-care (01) ==
PROVIDERS: Emergency Provider Physician Assistant; PCP Family Medicine
DX: M79.89 Other specified soft tissue disorders (principal); F17.210 Nicotine dependence, cigarettes, uncomplicated
CPT/HCPCS: 99282

== ENCOUNTER → 2023-12-15 13:47 | Outpatient (BNVA) | payer OTHER, SELFPAY ==
[2023-11-15 12:14] VITALS: BP 127/86; BMI 23.4
== END ==
PROVIDERS: PCP Family Medicine; Referring Provider Family Medicine; Visit Provider Physician Assistant
DX: M75.42 Impingement syndrome of left shoulder
CPT/HCPCS: 73030

== ENCOUNTER → 2024-08-22 15:31 | Outpatient (BNVA) | payer OTHER, SELFPAY ==
[2024-05-06 07:54] VITALS: BP 127/86; BMI 23.4
== END ==
PROVIDERS: PCP Family Medicine; Visit Provider Psychiatry & Neurology Psychiatry
DX: F41.1 Generalized anxiety disorder (principal)
CPT/HCPCS: 80061; 83036

== ENCOUNTER → 2024-12-25 09:55 | Outpatient (BNVA) | payer MEDICAID, SELFPAY ==
[2024-08-26 15:54] VITALS: BP 112/69; BMI 25.0
== END ==
PROVIDERS: PCP Family Medicine; Visit Provider Surgery
DX: Z12.11 Encounter for screening for malignant neoplasm of colon (principal)
CPT/HCPCS: 99024; 99214

== ENCOUNTER → 2025-01-14 11:10 | Outpatient (BNVA) | payer MEDICAID, SELFPAY ==
[2024-08-26 15:54] VITALS: BP 112/69; BMI 25.0
== END ==
PROVIDERS: PCP Family Medicine; Visit Provider Physician Assistant
DX: M75.42 Impingement syndrome of left shoulder (principal)
CPT/HCPCS: 20610; 73030; 99213; J3301; J9999

== ENCOUNTER 2025-01-23 06:29 | Day surgery (SDC) | payer MEDICAID, SELFPAY ==
[2024-08-26 15:54] VITALS: BP 112/69; BMI 25.0
[2025-01-23 06:46] VITALS: BP 131/76; PULSE 60; RESP 18; TEMP 36.3; O2SAT 97; BMI 26.4
--- NOTE | 2025-01-23 07:36 | W.PM.OPSUD ---
Surgery/Procedure H&P Update DATE OF PROCEDURE: January 23, 2025 DATE H&P PERFORMED: 12/25/24 H&P UPDATE INFORMATION: I have reviewed H&P completed within last 30 days, I have examined patient prior to procedure, No changes to prior documentation, Changes to prior documentation as noted here and Risks and benefits of the procedure reviewed PLANNED PROCEDURE: Operation Date: 01/23/25 07:55 Proposed Procedures p Colonoscopy 17386 G0105, Z12.11(Not Applicable) - Santy Wooten MD
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
--- NOTE | 2025-01-23 08:12 | PC.NURSE ---
[facility] time 0812
[2025-01-23 08:36] VITALS: BP 140/99; PULSE 78; RESP 16; TEMP 36.1; O2SAT 99
[2025-01-23 08:45] VITALS: BP 144/94; PULSE 67; RESP 16; O2SAT 100
== END 2025-01-23 09:05 | disposition home or self-care (01) ==
PROVIDERS: PCP Family Medicine; Visit Provider Surgery
PROC: 0DJD8ZZ Inspection of Lower Intestinal Tract, Via Natural or Artificial Opening Endoscopic (ICD-10-PCS; CPT 45378; principal; 2025-01-23 07:55)
DX: Z12.11 Encounter for screening for malignant neoplasm of colon (principal); D12.2 Benign neoplasm of ascending colon; D12.3 Benign neoplasm of transverse colon; D12.8 Benign neoplasm of rectum; J44.9 Chronic obstructive pulmonary disease, unspecified; I10 Essential (primary) hypertension; F41.8 Other specified anxiety disorders; F17.210 Nicotine dependence, cigarettes, uncomplicated; F12.90 Cannabis use, unspecified, uncomplicated; F15.11 Other stimulant abuse, in remission
CPT/HCPCS: 45385; 88305; J2371; J2704; J7030

== ENCOUNTER → 2025-02-18 10:27 | Outpatient (BNVA) | payer MEDICAID, SELFPAY ==
[2024-08-26 15:54] VITALS: BP 112/69; BMI 25.0
== END ==
PROVIDERS: PCP Family Medicine; Visit Provider Surgery
DX: Z09 Encounter for follow-up examination after completed treatment for conditions other than malignant neoplasm (principal)
CPT/HCPCS: 99213

== ENCOUNTER → 2025-04-24 10:11 | Outpatient (BNVA) | payer OTHER, SELFPAY ==
[2024-08-26 15:54] VITALS: BP 112/69; BMI 25.0
== END ==
PROVIDERS: PCP Family Medicine; Visit Provider Nurse Practitioner Psychiatric/Mental Health
DX: F41.1 Generalized anxiety disorder (principal); F33.2 Major depressive disorder, recurrent severe without psychotic features; F12.20 Cannabis dependence, uncomplicated; F15.20 Other stimulant dependence, uncomplicated; Z79.899 Other long term (current) drug therapy
CPT/HCPCS: 80061; 83036

== ENCOUNTER → 2025-05-19 10:08 | Outpatient (BNVA) | payer MEDICAID, SELFPAY ==
[2025-04-25 10:46] VITALS: BP 120/82; BMI 24.4
== END ==
PROVIDERS: PCP Family Medicine; Referring Provider Family Medicine; Visit Provider Internal Medicine
DX: J44.9 Chronic obstructive pulmonary disease, unspecified (principal); R91.1 Solitary pulmonary nodule; Z87.891 Personal history of nicotine dependence; T78.40XA Allergy, unspecified, initial encounter; X58.XXXA Exposure to other specified factors, initial encounter
CPT/HCPCS: 99204; 99214

== ENCOUNTER 2025-06-12 07:38 | Outpatient (CLI) | payer MEDICAID, SELFPAY ==
[2025-04-25 10:46] VITALS: BP 120/82; BMI 24.4
--- NOTE | 2025-06-12 07:45 | CTR_ITS ---
PROCEDURE INFORMATION: Exam: CT Chest Without Contrast; Diagnostic Exam date and time: 06/12/2025 7:56 AM Age: 54 years old Clinical indication: Condition or disease; Lung condition and disease; Pulmonary nodule, solitary; Additional info: Lung nodule TECHNIQUE: Imaging protocol: Diagnostic computed tomography of the chest without contrast. Radiation optimization: All CT scans at this facility use at least one of these dose optimization techniques: automated exposure control; mA and/or kV adjustment per patient size (includes targeted exams where dose is matched to clinical indication); or iterative reconstruction. COMPARISON: CT lung screening [id number] 11/25/2022 2:19 PM RADIATION DOSE METRICS: Total DLP (mGy-cm): 302.78 FINDINGS: Lungs: Emphysematous COPD most severely affecting the apices. No pulmonary nodules are visible. Pleural spaces: Unremarkable. No pneumothorax. No pleural effusion. Heart: Unremarkable. No cardiomegaly. No pericardial effusion. Coronary arteries: No coronary artery calcifications. Lymph nodes: Visible central lymph nodes are not pathologically enlarged. Vasculature: Unremarkable. No aortic aneurysm. Bones/joints: Unremarkable. No acute fracture. Soft tissues: Unremarkable. CT/CT chest wo con [id number] IMPRESSION: 1. No acute findings. 2. No suspicious pulmonary nodules. COMMENTS: The presence of pulmonary emphysema on CT is an independent risk factor for lung cancer. In the absence of a history or active diagnosis of lung cancer, it is recommended that this patient with emphysema be evaluated for enrollment in a low dose CT lung cancer screening program.
== END 2025-06-12 07:39 | disposition home or self-care (01) ==
LOC: RAD 07:39
PROVIDERS: PCP Family Medicine; Visit Provider Internal Medicine
DX: J44.9 Chronic obstructive pulmonary disease, unspecified (principal); J43.8 Other emphysema
CPT/HCPCS: 71250